=== PATIENT | male | born 1955 | race Caucasian/White ===

== ENCOUNTER → 2024-07-20 08:44 | Outpatient (REF) | payer MEDICARE, OTHER, SELFPAY | LOC: RAD 08:44 | PROVIDERS: ATTENDING PHYSICIAN Thoracic Surgery (Cardiothoracic Vascular Surgery); FAMILY PHYSICIAN Physician Assistant Medical | DX: I25.10 Atherosclerotic heart disease of native coronary artery without angina pectoris (principal); Z01.810 Encounter for preprocedural cardiovascular examination | CPT/HCPCS: 71250 ==

== ENCOUNTER → 2024-07-24 13:12 | Outpatient (REF) | payer MEDICARE, OTHER, SELFPAY | LOC: RAD 13:12 | PROVIDERS: ATTENDING PHYSICIAN Thoracic Surgery (Cardiothoracic Vascular Surgery); FAMILY PHYSICIAN Physician Assistant Medical | DX: I65.23 Occlusion and stenosis of bilateral carotid arteries (principal); Z01.810 Encounter for preprocedural cardiovascular examination | CPT/HCPCS: 70496; 70498; Q9967 ==

== ENCOUNTER 2024-08-15 06:09 | Inpatient (IN) | payer MEDICARE, OTHER, SELFPAY ==
[2024-07-18 08:28] VITALS: BMI 40.0
[2024-07-18 09:16] LABS: % Basophils 0.8 % (0-2); % Eosinophils 1.2 % (0-6); % Immature Granulocytes 0.6 % (0-0.5); % Neutrophils 69.4 % (42.2-75.2); Absolute Basophils 0.1 10^3/uL (0-0.2); Absolute Eosinophils 0.1 10^3/uL (0-0.7); Absolute Lymphocytes 1.2 10^3/uL (1.2-3.4); Absolute Monocytes 0.6 10^3/uL (0.1-0.6); Absolute Neutrophils 4.5 10^3/uL (1.4-6.5); Hematocrit 41.2 % (39.0-52.0); Hemoglobin 14.5 g/dL (13.0-18.0); Mean Corp Hgb Conc. 35.2 g/dL (33.0-37.0); Mean Corpuscular Volume 93.6 fL (80.0-94.0); Mean Platelet Volume 9.4 fL (7.4-10.4); Nucleated Red Blood Cells % 0 % (-); Platelet Count 178 10^3/uL (130-400); Red Cell Dist. Width 12.6 % (11.5-14.5); White Blood Cell Count 6.5 10^3/uL (4.8-10.8)
[2024-07-18 09:17] LABS: Urine Albumin 3+ (Neg - Trace); Urine Bilirubin Negative (Negative); Urine Character Clear (Clear); Urine Color Yellow; Urine Glucose Negative (Negative); Urine Ketone Negative (Negative); Urine Leukocyte Negative (Negative); Urine Nitrite Negative (Negative); Urine Occult Blood 4+ (Negative); Urine Urobilinogen Negative (Neg - 1+)
[2024-07-18 09:27] LABS: INR 1.04; PT 14.2 Sec (11.4-14.6)
[2024-07-18 09:28] LABS: APTT 37.4 Sec (23.4-35.0)
[2024-07-18 09:34] LABS: Urine Mucus Moderate
[2024-07-18 09:37] LABS: Urine Bacteria Few (Negative); Urine Red Blood Cell 70-80 /HPF (0-2)
[2024-07-18 09:59] LABS: ALT (SGPT) 32 U/L (0-50); AST (SGOT) 58 U/L (17-59); Albumin 4.3 g/dl (3.5-5.0); Alkaline Phosphatase 82 U/L (38-126); Blood Urea Nitrogen 9 mg/dl (9-20); Calcium 9.5 mg/dl (8.4-10.2); Carbon Dioxide 25 mmol/L (22-30); Chloride 100 mmol/L (98-107); Direct Bilirubin 0.3 mg/dl (0.0-0.4); Estimated Creatinine Clearance 118 ml/min; Glucose 118 mg/dl (70-99); Potassium 4.3 mmol/L (3.5-5.1); Sodium 135 mmol/L (135-145); Total Protein 7.1 g/dl (6.3-8.2); eGFR > 60.00
--- NOTE | 2024-07-18 09:59 | CM ---
Chart reviewed. Met with the patient and his life partner in [facility]. Patient currently with a cough and low grade fever. Dr Gilbert would like a follow up phone call with the patient on Monday to assess how he is feeling to help prevent prolong
intubation time. I notified Loida Hensley. Reviewed preoperative and postoperative instructions and restrictions, along with showering guidelines. Gave 2 soaps. Patient is agreeable to a home visit by CT Transitional RN. Patient is independent
of ADLS, lives with his life partner in a [address], 3 [facility], ambulates with a rollator. Plan is for the patient to return with CT Transitional RN.
[2024-07-18 10:26] LABS: Glycohemoglobin (HgbA1c) 5.3 % (4.0-5.6)
--- NOTE | 2024-08-07 12:53 | PTCARENOTE ---
Estela in Dr Dennis's office made aware of CXR report from 07/18/24.
--- NOTE | 2024-08-07 13:18 | PTCARENOTE ---
Ivelisse in Dr. Manning's office made aware of CXR report dated 07/18/24.
--- NOTE | 2024-08-07 13:59 | PTCARENOTE ---
patients 3/6 CXR abnormal- reviewed by Dr. Hidalgo- no additional interventions required
[2024-08-12 09:26] VITALS: BMI 40.7
[2024-08-12 09:49] LABS: % Basophils 0.8 % (0-2); % Eosinophils 5.6 % (0-6); % Immature Granulocytes 0.7 % (0-0.5); % Lymphocytes 25.1 % (20.5-51.1); % Monocytes 8.1 % (1.7-9.3); % Neutrophils 59.7 % (42.2-75.2); Absolute Basophils 0.1 10^3/uL (0-0.2); Absolute Eosinophils 0.5 10^3/uL (0-0.7); Absolute Immature Granulocytes 0.1 10^3/uL (0-0.05); Absolute Lymphocytes 2.1 10^3/uL (1.2-3.4); Absolute Monocytes 0.7 10^3/uL (0.1-0.6); Absolute Neutrophils 4.9 10^3/uL (1.4-6.5); Hematocrit 42.8 % (39.0-52.0); Hemoglobin 14.8 g/dL (13.0-18.0); Mean Corp Hgb Conc. 34.6 g/dL (33.0-37.0); Mean Corpuscular Volume 92.6 fL (80.0-94.0); Mean Platelet Volume 8.7 fL (7.4-10.4); Nucleated Red Blood Cells % 0 % (-); Platelet Count 219 10^3/uL (130-400); Red Blood Cell Count 4.62 10^6/uL (4.70-6.10); Red Cell Dist. Width 12.7 % (11.5-14.5); White Blood Cell Count 8.3 10^3/uL (4.8-10.8)
[2024-08-12 10:01] LABS: APTT 29.8 Sec (23.4-35.0); INR 0.96; PT 13.1 Sec (11.4-14.6)
[2024-08-12 10:38] LABS: Blood Urea Nitrogen 9 mg/dl (9-20); Calcium 9.5 mg/dl (8.4-10.2); Carbon Dioxide 29 mmol/L (22-30); Chloride 102 mmol/L (98-107); Estimated Creatinine Clearance 115 ml/min; Glucose 115 mg/dl (70-99); Potassium 4.6 mmol/L (3.5-5.1); Sodium 140 mmol/L (135-145); eGFR > 60.00
[2024-08-15] VITALS (8 sets, daily range): BP systolic 129–159; BP diastolic 72–90; BMI 40.5; BMI 39.6
--- NOTE | 2024-08-15 06:48 | W.SUR.PREOP ---
Pre-Operative Surgical Note
-
I have examined this patient prior to the performance of the scheduled procedure.
The patient's condition is unchanged from the time of the current History and
Physical and the patient is able to undergo the scheduled procedure.
[2024-08-15] MEDS: BACTROBAN NASAL 1 GRAM NASAL (07:12)
[2024-08-15] MEDS: PERIDEX 0.12% ORAL RINSE 15 ML PO (07:12)
[2024-08-15] MEDS: VANCOCIN 530 MG IV (07:15)
--- NOTE | 2024-08-15 09:02 | OR.RPT ---
Operative Report
Operative Report
PROCEDURE DATE: 08/15/2024
Preoperative diagnosis:
1. Critical bilateral carotid artery stenoses, right worse than left. Asymptomatic.
2. Critical coronary artery disease, preop for CABG.
Postoperative diagnosis: Same
Procedure: Right carotid endarterectomy with bovine pericardial patch angioplasty and intraoperative EEG/SSEP monitoring.
Surgeon: Nigel
Slp Teacher: VALERY Adame, required for all aspects of procedure including assistance with traction/countertraction, following of suture line, assistance with closure.
Complications: None
Anesthesia: General
Indications for procedure:
Severe bilateral right greater than left carotid stenosis. Also had evidence of vertebral basilar disease. Therefore concern for adequate perfusion for upcoming CABG procedure. In order to mitigate stroke risk, I felt that revascularizing 1 of
carotid would be of benefit. Especially given patent em[place]ak of [place]. Risk/benefits/alternatives of carotid endarterectomy all fully discussed. Patient understood all wished to proceed.
Description of procedure:
Patient was identified brought to the operating room placed on the table in supine position. After the adequate administration of anesthesia and perioperative antibiotics he was prepped and draped in the standard surgical fashion. A standard
preoperative timeout was undertaken and everybody was in agreement the plan. A standard longitudinal incision was made in the right neck that was carried through the skin subcutaneous tissue. Using the electrocautery dissection was carried through
the platysma muscle layer and then alongside the anterior medial border of the sternocleidomastoid muscle. The patient had a moderate amount of subcutaneous fatty tissue leading to the sternocleidomastoid muscle. Then using a combination of sharp
dissection with the Metzenbaum scissors and electrocautery I dissected along the anterior medial border of the internal jugular vein. There was not 1 large common facial vein branch but rather 2 smaller branches that were ligated between silk ties
and then divided. I then deepened my retraction. The common carotid artery was identified and carefully dissected away from the surrounding structures take great care to avoid any injury to the structures. A vessel loop was passed around it which
was double looped, but not yet tightened. Note the vagus nerve was visualized in its usual course posterior lateral to the common carotid artery, and was protected from harm's way. I then continued my dissection up the common carotid artery to the
bulb staying only on the anterior surface of the carotid artery. Then I carried the dissection up to the internal carotid artery and then to the distal internal carotid artery. I identified where it was soft and carefully circumferentially
dissected the internal carotid artery with minimal mobilization and passed a vessel loop around it. Note the hypoglossal nerve was preserved from harm's way. The patient was given an appropriate dose of heparin 11,000 units. Next I dissected the
anterior surface of the external carotid artery and superior thyroid branches. These were then carefully circumferentially dissected with minimal mobilization and vessel loops passed around these which were double looped but not yet tightened.
After 3 minutes of heparin circulation time and confirmation of optimization of the blood pressure with my anesthesiology colleagues, I clamped the distal internal carotid artery where it was soft. There was no immediate EEG or SSEP changes. After
1 minute of test clamp time there was no changes noted. Therefore at this point, the vessel loops on the external carotid artery and superior thyroid branches were tightened and the common carotid artery was clamped where it was soft proximally.
An arteriotomy was made on the common carotid artery with an 11 blade and extended using a Ibanez scissor. I extended the arteriotomy onto the mid to distal internal carotid artery. There was essentially occlusive plaque at the distal bulb leading
into the internal carotid artery such that a great difficulty even opening the channel of flow with a Ibanez scissor. But was able to finally do so staying external to the plaque and then back in the lumen just beyond the plaque. A Moriah was then
used to endarterectomized the plaque. An endarterectomy plane was created, and the plaque was then endarterectomized. Distally I feathered the plaque out to a nice clean endpoint in the distal internal carotid artery. Next I endarterectomized the
intima back to normal intima in the common carotid artery, and the intima was cut flush there. I then grasped the plaque and everted plaque out of the origin of the external carotid artery. The plaque was then sent off for specimen. The origin of
the external carotid artery was carefully visualized and any fine debris were removed with fine forceps. Proximal and distal endpoints were then carefully inspected. Any fine debris was removed with fine forceps, and the intima was noted to be
nicely adherent proximally and distally. Next any fine debris were removed throughout the endarterectomy bed with fine forceps. I then flushed heparinized saline. I was very satisfied. Then, I used a bovine pericardial patch to sew a patch
angioplasty with a running 5-0 Prolene suture. Prior to completing and tying down my suture line, I backbled sequentially each branch and reclamped each branch prior to unclamping the next branch. I then irrigated with heparinized saline. Then I
completed and tied down my suture line. We then restored flow in the common carotid and external carotid arteries. Finally, we released flow in the internal carotid artery. There was excellent pulsatile flow in all 3 vessels. There was an
excellent Doppler signal in the internal carotid artery distal to the patch with a good normal low resistance Doppler signal. There was a good Doppler signal in the external carotid artery as well. A couple of 6-0 Prolene [id number] sutures
were placed along any bleeding points along the suture line. Protamine was given to reverse the heparin. Hemostasis was completely achieved. We then irrigated and confirmed full hemostasis. We then closed in layers with 2-0 Vicryl layer to
reapproximate the sternocleidomastoid muscle, followed by 3-0 Vicryl platysma muscle running layer, followed by 4-0 Monocryl subcuticular stitch. Dermabond was applied. The patient tolerated procedure well. He awoke moving all extremities to
command with tongue in the midline.
--- NOTE | 2024-08-15 09:03 | W.SUR.POST ---
Surgical Immediate Post Op
Note
Pre Op Diagnosis: Carotid stenosis
Post Op Diagnosis: Same
Procedure Performed: Right carotid endarterectomy with bovine pericardial patch angioplasty and EEG monitoring
Primary Surgeon: Nigel
Assist: Deep FRANCO
Anesthesia: General
Estimated Blood Loss: 25 cc
Fluids: See anesthesia flowsheet
Drains/Shunts: None
Specimens/Cultures: Carotid plaque
Doppler/Duplex/Angio (Y/N): Y
Complications: None
Operative Findings: Woke from anesthesia moving all extremities
[2024-08-15 09:54] LABS: Blood Urea Nitrogen 7 mg/dl (9-20); Calcium 8.3 mg/dl (8.4-10.2); Carbon Dioxide 23 mmol/L (22-30); Chloride 109 mmol/L (98-107); Estimated Creatinine Clearance > 125 ml/min; Glucose 141 mg/dl (70-99); Potassium 3.8 mmol/L (3.5-5.1); Sodium 138 mmol/L (135-145); eGFR > 60.00
[2024-08-15 09:57] LABS: INR 1.18; PT 15.5 Sec (11.4-14.6)
[2024-08-15 09:58] LABS: APTT 33.5 Sec (23.4-35.0)
[2024-08-15 10:08] LABS: Hematocrit 35.7 % (39.0-52.0); Hemoglobin 12.6 g/dL (13.0-18.0); Mean Corp Hgb Conc. 35.3 g/dL (33.0-37.0); Mean Corpuscular Hgb 32.6 pg (27.0-31.0); Mean Corpuscular Volume 92.2 fL (80.0-94.0); Mean Platelet Volume 8.7 fL (7.4-10.4); Platelet Count 158 10^3/uL (130-400); Red Blood Cell Count 3.87 10^6/uL (4.70-6.10); Red Cell Dist. Width 13.1 % (11.5-14.5); White Blood Cell Count 10.6 10^3/uL (4.8-10.8)
[2024-08-15] MEDS: NSS 1000 IV ×2 (10:42→23:07)
--- NOTE | 2024-08-15 10:44 | CON.INTV ---
Consultation
Consultation Request
Date/Time Consultation Requested: 08/15
Date/Time Consultation Performed: 08/15
Reason for Consultation: Critical care
Medical History
-
History of Present Illness:
History obtained from the patient but also reviewing inpatient and outpatient records. Patient is a 69-year-old male with history of hypertension, hypercholesterolemia, history of TIA, coronary disease who was found to have bilateral carotid
disease, right greater than left. In anticipation of possible bypass surgery, patient underwent right carotid endarterectomy 08/15. Presently he is without complaints. Systolic blood pressure 180s to 190s. Patient denies any headaches, shortness
of breath, chest pain.. We are asked to help from a critical care standpoint
.
PMH: Hypertension, hyperlipidemia, coronary disease, history of hemorrhagic shock from retroperitoneal bleed on anticoagulation in the past, chronic atrial fibrillation, right bundle branch block, history of pulm embolism, gout, asthma, history of
sleep apnea not on CPAP, history of anemia. History of TIA with difficulty walking at 2002. History of complete disease. Patient not a great historian as he denied history of blood clot, denied history of sleep apnea. He also has a history of
renal stent, cataract surgery, vertebral artery angioplasty at [place]. History of COVID
Past Medical History
Past Medical History: None (See above)
Past Surgical History: None (See above)
Social History
Tobacco: Former Smoker ([id number] history of smoking quit 2002)
Alcohol: Daily (3 tequila cocktails a day)
Drug: None
Personal: Partner
Living: With Roomate
Employment: Retired (Loader Operator)
Family History
Family History: Other (No children. 1 brother with early onset Alzheimer's . Family history of coronary disease in father at 85, mother at 75)
Allergies / Home Medications
Allergies
Allergy/AdvReac Type Severity Reaction Status Date / Time
amoxicillin Allergy Swelling Verified 08/15/24 06:20
ampicillin Allergy Swelling Verified 08/15/24 06:20
cephalexin [From Keflex] Allergy Swelling Verified 08/15/24 06:20
Cephalosporins Allergy Unknown Verified 08/15/24 06:20
penicillin V Allergy PER PT Verified 08/15/24 06:20
ABLE TO
TOLERATE
PENICILLIINS
Penicillins Allergy PER PT Verified 08/15/24 06:20
ABLE TO
TOLERATE
PENICILLINS
Home Medications
�Medication �Instructions �Recorded �Confirmed �Last Taken �Type
allopurinol 100 mg tablet 100 mg PO DAILY 07/12/24 08/15/24 08/15/24 04:30 History
amlodipine 5 mg tablet 5 mg PO HS 07/12/24 08/15/24 08/14/24 19:00 History
aspirin 81 mg tablet,delayed 81 mg PO DAILY 07/12/24 08/15/24 08/15/24 04:30 History
release
carvedilol 12.5 mg tablet 12.5 mg PO BID 07/12/24 08/15/24 08/15/24 04:30 History
folic acid 1 mg tablet 1 mg PO DAILY 07/12/24 08/15/24 08/15/24 04:30 History
potassium chloride 20 mEq 20 meq PO DAILY 07/12/24 08/15/24 08/15/24 04:30 History
tablet,extended release
thiamine mononitrate (vit B1) 100 100 mg PO DAILY 07/12/24 08/15/24 08/15/24 04:30 History
mg tablet
Lactobacillus acidophilus 10 10,000 mmu cells PO DAILY 08/07/24 08/15/24 08/14/24 10:00 History
billion cell capsule (Probiotic)
ferrous sulfate 325 mg (65 mg 325 mg PO DAILY 08/07/24 08/15/24 08/15/24 04:30 History
iron) tablet (iron)
simvastatin 20 mg tablet 20 mg PO DAILY 08/07/24 08/15/24 08/15/24 04:30 History
turmeric 400 mg capsule 400 mg PO DAILY 08/07/24 08/15/24 08/14/24 10:00 History
ramelteon 8 mg tablet 8 mg PO HS 08/15/24 08/15/24 08/14/24 19:00 History
Review of Systems
-
All other systems: Negative unless noted
Vitals / Labs / Diagnostic Testing
Vital Signs
Temp Pulse Resp BP Pulse Ox
97.3 F 61 17 147/85 98
08/15/24 10:09 08/15/24 10:00 08/15/24 10:00 08/15/24 10:00 08/15/24 10:09
Lab Data
08/15/24 09:33
08/15/24 09:33
Laboratory Results
08/15/24
09:33
PT 15.5 H
INR 1.18
APTT 33.5
Diagnostic Testing:
Physical Exam
-
HEENT: Normocephalic, Anicteric, Other (Right carotid incision intact) and Other (Pupils equal and reactive)
Cardiovascular: S1/S2, Regular Rhythm, Murmur (n), Rub (n), Peripheral Edema (tr) and Calf Tenderness (n)
Respiratory: Wheeze (n), Rales (n), Rhonchi (n) and Non-Labored Respirations
GI: Soft, Non Distended (Obese) and Non Tender
Neurology: Awake, Alert, Oriented and No Motor Deficits (Cranial nerves intact, moves all extremities)
Skin: Good Color and Other (Left upper extremity A-line)
General: Comfortable
Assessment
-
69-year-old male with complex medical history including known coronary disease based on catheterization 07/03/2024, bilateral carotid disease, now status post right carotid endarterectomy in anticipation of bypass surgery
S/p RCEA 4/3
Hypertension
SBP 190
Coronary disease with multivessel disease per catheterization 07/03/2024 ([facility])
Awaiting bypass surgery
Conditions present prior to admission
Moderate to severe obstructive lung disease, FEV1 2.06/61%
Spirometry 07/18/2024
History of stroke/TIA 2002
Vertebral artery angioplasty at [place]
History of subarachnoid hemorrhage
Difficulty walking, uses a cane
Hypertension/hyperlipidemia
History of right bundle branch block/LAFB
Diabetes
History of pulmonary embolism, patient cannot recall
History of asthma
Sleep apnea per records, not on CPAP
History of hemorrhagic shock with retroperitoneal bleed in the past
While on anticoagulation
Chronic atrial fibrillation
04-[id number] history of smoking quit 2002
Daily alcohol use, 3 tequila cocktails a day
Plan/recommendations
Presently, patient is comfortable without complaints. Current systolic pressure in the 190
Cardene drip was started, systolic pressure 168
Will titrate per parameters maintain SBP between 140 and 160
Patient without complaints, denies headaches
Unfortunately, patient is not a very good historian
Cannot recall history of pulm embolism
Initially could not recall history of stent placement of vertebral artery but then recalls after discussion
Cannot recall any history of bleeding in the brain per records, subarachnoid hemorrhage
Cannot recall any history of atrial fibrillation
Patient does recall bleed in the abdomen in 2023 while at [facility] while on anticoagulation and Lovenox
Moving forward
Continue with management per vascular surgery
Close monitoring of blood pressure, A-line in place.
Cardene to maintain blood pressure within parameters per vascular protocol
Apparently patient required Sung-Synephrine intraoperatively per nursing
Appears to be in sinus rhythm based on telemetry
Await EKG, chest x-ray
Continue IV fluids
Following neurovascular exam, vascular checks. Neurological exam nonfocal at this time
Aspirin therapy per vascular protocol
Subcutaneous heparin for DVT prophylaxis
Discussed with patient importance of alcohol moderation/cessation given multiple comorbidities. 'Why would I do that'
This will be an ongoing discussion
Reviewed with critical care nursing
TCCT 31 min
[2024-08-15] MEDS: CARDENE 200 IV ×2 (10:47→18:12)
[2024-08-15 10:50] LABS: Glucose - Point of Care 122 mg/dl (70-99)
--- NOTE | 2024-08-15 11:00 | PTCARENOTE ---
Received pt into ICU rm [id number] from PACU s/p R CEA. Neuro checks completed w off going RN- see flow sheet. Pt. oriented x3; c/o mild pain @ incisional site, denies pain meds. PERRLA 3mm/brisk. ZHENG/gen weakness. Facial symmetry intact SR w 1st
degree AVB w BBB and PAC's on monitor. SpO2 98% on 2LNC. +BS, abd soft/round/obese. Tolerating clear liquids, no n/v. Cont b/b. Elevated SBP's into 180's. Cardene gtt initiated per orders to keep SBP w/in goal range- see flow sheet. #20 R FA w
NSS @ 80ml/hr and Cardene gtt infusing. #18 R AC patent, dressing c/d/i. L rad A-line transduced, calibrated, and monitored; all ports patent and secured. Pt. instructed on how to report care concerns and call alcantara in reach.
[2024-08-15] MEDS: TYLENOL 650 MG PO ×2 (13:26→19:39)
[2024-08-15] MEDS: HEPARIN 5000 UNITS SC ×2 (16:27→23:06)
--- NOTE | 2024-08-15 16:48 | PTCARENOTE ---
Pt. reassessed; no changes since initial assessment. Q1h neuro checks maintained; remains w in normal limits- see flow sheet. Pt. tolerating meals. Bedrest maintained. Remains on cardene gtt to keep SBP w in goal range- see flow sheet. Call alcantara
w in reach.
[2024-08-15] MEDS: COREG 12.5 MG PO (19:39)
--- NOTE | 2024-08-15 20:00 | PTCARENOTE ---
Received pt resting in bed, AAOx3, in good spirits. C/O / R neck pain - tylenol given. Neuro checks ongoing Q1h. All WNL. SR with 1st deg, HR 70s. On cardene to maintain SBP 100-165 - see titrations. L david zeroed and transducing. +1 LE edema. +
pulses. AFebrile. On 2L NC. Spo2 97%. Lungs CTA. Round abd. + bowel sounds. Tolerating low cholesterol diet. Voiding in urinal without difficulty. R neck incision approximated, surgi glue intact. Mild ecchymosis and edema present - ice pack applied.
Cardene gtt and NSS @ 80ml/hr infusing. Call alcantara in reach
[2024-08-15] MEDS: NORVASC 5 MG PO (21:12)
[2024-08-16] VITALS (13 sets, daily range): BP systolic 124–177; BP diastolic 71–100; BMI 40.1
--- NOTE | 2024-08-16 | PTCARENOTE ---
No changes in assessment. Remains on cardene gtt.
[2024-08-16] MEDS: CARDENE 200 IV (02:15)
[2024-08-16] MEDS: TYLENOL 650 MG PO (03:09)
[2024-08-16 03:43] LABS: Hematocrit 35.8 % (39.0-52.0); Hemoglobin 12.7 g/dL (13.0-18.0); Mean Corp Hgb Conc. 35.5 g/dL (33.0-37.0); Mean Corpuscular Hgb 33.2 pg (27.0-31.0); Mean Corpuscular Volume 93.7 fL (80.0-94.0); Mean Platelet Volume 9.5 fL (7.4-10.4); Platelet Count 181 10^3/uL (130-400); Red Blood Cell Count 3.82 10^6/uL (4.70-6.10); Red Cell Dist. Width 12.9 % (11.5-14.5); White Blood Cell Count 12.1 10^3/uL (4.8-10.8)
[2024-08-16 03:51] LABS: INR 1.14; PT 15.1 Sec (11.4-14.6)
[2024-08-16 03:52] LABS: APTT 31.4 Sec (23.4-35.0)
[2024-08-16 04:06] LABS: Blood Urea Nitrogen 7 mg/dl (9-20); Calcium 8.6 mg/dl (8.4-10.2); Carbon Dioxide 24 mmol/L (22-30); Chloride 106 mmol/L (98-107); Estimated Creatinine Clearance > 125 ml/min; Glucose 151 mg/dl (70-99); Potassium 3.9 mmol/L (3.5-5.1); Sodium 139 mmol/L (135-145); eGFR > 60.00
[2024-08-16 05:01] LABS: Hepatitis C Antibody Negative (Negative)
[2024-08-16] MEDS: KCL 20 MEQ PO (07:31)
[2024-08-16] MEDS: VISBIOME 1 CAP PO (07:31)
[2024-08-16] MEDS: COREG 12.5 MG PO ×2 (07:31→16:54)
[2024-08-16] MEDS: LIPITOR 10 MG PO (07:31)
[2024-08-16] MEDS: FOLVITE 1 MG PO (07:31)
[2024-08-16] MEDS: ZYLOPRIM 100 MG PO (07:31)
[2024-08-16] MEDS: ASPIR LOW (ENTERIC COATED) 81 MG PO (07:31)
[2024-08-16] MEDS: HEPARIN 5000 UNITS SC ×2 (07:32→16:54)
--- NOTE | 2024-08-16 07:52 | W.PN.INTV ---
Today's Communication / Plan
Recommendations
Wean off Cardene therapy per vascular protocol
Currently on aspirin
DVT prophylaxis with subcutaneous heparin
Patient drinks 3 tequila a day, continue thiamine/folic acid
We will follow postsurgery in the next week.
Assessment
-
69-year-old male with complex medical history including known coronary disease based on catheterization 07/03/2024, bilateral carotid disease, now status post right carotid endarterectomy in anticipation of bypass surgery
S/p RCEA 08/15
Hypertension
SBP 190
Coronary disease with multivessel disease per catheterization 07/03/2024 ([facility])
Awaiting bypass surgery
Conditions present prior to admission
Moderate to severe obstructive lung disease, FEV1 2.06/61%
Spirometry 07/18/2024
History of stroke/TIA 2002
Vertebral artery angioplasty at [place]
History of subarachnoid hemorrhage
Difficulty walking, uses a cane
Hypertension/hyperlipidemia
History of right bundle branch block/LAFB
Diabetes
History of pulmonary embolism, patient cannot recall
History of asthma
Sleep apnea per records, not on CPAP
History of hemorrhagic shock with retroperitoneal bleed in the past
While on anticoagulation
Chronic atrial fibrillation
37-[id number]-lisg history of smoking quit 2002
Daily alcohol use, 3 tequila cocktails a day
Plan/recommendations
Presently, patient is comfortable without complaints.
Cardene drip continues, will continue to wean off
Patient without complaints, denies headaches
Unfortunately, patient is not a very good historian
Cannot recall history of pulm embolism
Initially could not recall history of stent placement of vertebral artery but then recalls after discussion
Cannot recall any history of bleeding in the brain per records, subarachnoid hemorrhage
Cannot recall any history of atrial fibrillation
Patient does recall bleed in the abdomen in 2023 while at [facility] while on anticoagulation and Lovenox
Moving forward
Continue with management per vascular surgery
Close monitoring of blood pressure, wean Cardene off
Apparently patient required Sung-Synephrine intraoperatively per nursing
Appears to be in sinus rhythm based on telemetry
CXR not obtained. Will obtain today
In anticipation of bypass surgery in the next week
EKG/3 normal sinus rhythm with right bundle branch block.
Tolerating p.o., discontinue IV fluids
Following neurovascular exam, vascular checks. Neurological exam nonfocal at this time
Aspirin therapy per vascular protocol
Subcutaneous heparin for DVT prophylaxis
Discussed with patient importance of alcohol moderation/cessation given multiple comorbidities. 'Why would I do that'
This will be an ongoing discussion
Eventual bypass surgery
Reviewed with critical care nursing
TCCT 31 min
Subjective Dataa
Subjective Data
Date of Service:
Date of Service: August 16, 2024
Subjective:
Patient is without complaints. Eating breakfast. Denies shortness of breath, chest pain, nausea, abdominal pain. Denies any neck pain. Appears to be in good spirits
Objective Data
Data Reviewed
Vital Signs / I&O / Oxygen:
Vital Signs
Temp Pulse Resp BP Pulse Ox
98.1 F 70 19 168/75 98
08/16/24 03:19 08/16/24 07:30 08/16/24 07:30 08/16/24 07:31 08/16/24 07:30
Intake and Output
08/15/24 08/16/24 08/17/24
06:59 06:59 06:59
Intake Total 2422.5 / 2502.5 80 / 80
Output Total 1450 / 2150 700 / 700
Balance 972.5 / 352.5 -620 / -620
SaO2 98
Nasal Cannula flow liters per 2
minute
Physical Exam
General: Comfortable, Other (Neck incision intact) and Other (Carotid incision intact)
HEENT: Normocephalic, Anicteric and Other (Large neck)
Cardiovascular: S1-S2, Regular Rhythm, Murmur (n), Rub (n) and Peripheral Edema (tr)
Respiratory: Wheeze (n), Crackles (n) and Rhonchi (n)
GI: Soft, Non Distended (Morbidly obese) and Non Tender
Neurology: Awake, Alert, Oriented and No Motor Deficits (Cranial nerves intact, moves all extremities)
Skin: Cyanosis (n) and Rash (n)
Labs/Micro/Reports
Lab Data
08/16/24 03:15
08/16/24 03:15
Laboratory Results
08/15/24 08/16/24
09:33 03:15
PT 15.5 H 15.1 H
INR 1.18 1.14
APTT 33.5 31.4
--- NOTE | 2024-08-16 08:22 | W.PN.VS ---
Addendum entered and electronically signed by Miguel Manning MD 08/16/24 16:16:
Seen and examined earlier this a.m. with VALERY Lainez. This is a late entry. Agree with findings as noted below. Patient was without complaints. Right neck incision clean dry and intact, no hematoma. Neurologically no focal deficits, moves all
extremities well. Tongue midline. Plan/as discussed and noted below.
Original Note:
Today's Communication / Plan
-
Seen and assessed with Dr. Manning
Assessment/Plan
-
POD 1 right CEA
Plan:
- DC A-line
- DC IV fluids
- Wean off Cardene
- P.o. meds
- Regular diet
- OOB/ambulate
- Transfer to CVICU when bed available for CT surgery Monday
Subjective Data
-
Date of Service: August 16, 2024
Patient seen at bedside, Dr. Manning. Patient offers no complaints at this time. No events overnight. On Cardene drip at this time.
Objective Data
-
Vital Signs
Temp Pulse Resp BP Pulse Ox
98.1 F 70 19 168/75 98
08/16/24 03:19 08/16/24 07:30 08/16/24 07:30 08/16/24 07:31 08/16/24 07:30
Intake and Output
08/15/24 08/16/24 08/17/24
06:59 06:59 06:59
Intake Total 2422.5 / 2502.5 160 / 160
Output Total 1450 / 2150 1000 / 1000
Balance 972.5 / 352.5 -840 / -840
Intake:
Oral fluids 360 / 360
IV fluids (Total) 2062.5 / 2142.5 160 / 160
Cardene 387.5 / 387.5
Nss 1,000 ml @ 80 mls/hr IV . 1600 / 1680 160 / 160
[id number] JOAN Rx#:[id number]
norm saline 75 / 75
Output:
Urine, Voided 1450 / 2150 1000 / 1000
Lab Results
08/16/24 03:15
08/16/24 03:15
Calcium 8.6 mg/dl (8.4-10.2) 08/16/24 03:15
Total Bilirubin 1.0 mg/dl (0.2-1.3) 07/18/24 08:38
Direct Bilirubin 0.3 mg/dl (0.0-0.4) 07/18/24 08:38
AST 58 U/L (17-59) 07/18/24 08:38
ALT 32 U/L (0-50) 07/18/24 08:38
Alkaline Phosphatase 82 U/L (38-126) 07/18/24 08:38
Total Protein 7.1 g/dl (6.3-8.2) 07/18/24 08:38
Albumin 4.3 g/dl (3.5-5.0) 07/18/24 08:38
Physical Exam
-
AAO x 3
No tachypnea on room air
No tachycardia
Neck site clean, dry, intact, soft, flat
Abdomen soft
Follows commands
Moves all extremities
--- NOTE | 2024-08-16 09:29 | PTCARENOTE ---
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 BP in the 170's this AM, cardene restarted. Vascular team rounded this AM, maintain SBP below 175, NIBP currently sitting at 130/70's. Cardene gtt off. DC A line and ambulate orders placed. Neuro checks intact. Pt is
having minimal pain from surgical site.
[2024-08-16] MEDS: FEOSOL 325 MG PO (09:55)
[2024-08-16] MEDS: VITAMIN B1 100 MG PO (09:55)
--- NOTE | 2024-08-16 10:28 | PTCARENOTE ---
A Line removed. Pt walked to the bathroom without difficulty, now OOB to chair. Pt uses his own rollator to ambulate.
--- NOTE | 2024-08-16 11:42 | CM ---
CM following re: discharge planning.
Reviewed pt's chart, met with pt.
Pt is a POD 1 right CEA and per Vascular Surgery pt will be transferred to IVU for CT surgery Monday.
Per CM note, patient is independent of ADL and IADL, lives with his life partner in a 1 STH, 3 LEON, ambulates with a rollator.
D/C plan: home with CT Transitional RN and partner support.
CM will follow with discharge plan updates as hospitalization progreseses
--- NOTE | 2024-08-16 14:24 | W.PN.UPDATE ---
Update Note
Progress Note Update
Transitioning care to CT surgery for planned procedure Monday.
Vascular surgery follow up added to chart
Please call with questions/concerns.
[2024-08-16] MEDS: NORVASC 5 MG PO (16:54)
[2024-08-17] VITALS (11 sets, daily range): BP systolic 145–169; BP diastolic 66–99; BMI 38.6; BMI 38.3
[2024-08-17] MEDS: HEPARIN 5000 UNITS SC ×4 (00:49→23:00)
[2024-08-17 04:58] LABS: Hematocrit 40.4 % (39.0-52.0); Hemoglobin 14.4 g/dL (13.0-18.0); Mean Corp Hgb Conc. 35.6 g/dL (33.0-37.0); Mean Corpuscular Volume 92.4 fL (80.0-94.0); Mean Platelet Volume 9.2 fL (7.4-10.4); Platelet Count 203 10^3/uL (130-400); Red Blood Cell Count 4.37 10^6/uL (4.70-6.10); Red Cell Dist. Width 13.1 % (11.5-14.5); White Blood Cell Count 10.1 10^3/uL (4.8-10.8)
[2024-08-17 05:27] LABS: Blood Urea Nitrogen 9 mg/dl (9-20); Calcium 9.6 mg/dl (8.4-10.2); Carbon Dioxide 28 mmol/L (22-30); Chloride 103 mmol/L (98-107); Estimated Creatinine Clearance > 125 ml/min; Glucose 113 mg/dl (70-99); Magnesium 1.8 mg/dl (1.6-2.3); Phosphorus 2.9 mg/dl (2.5-4.5); Potassium 3.9 mmol/L (3.5-5.1); Sodium 141 mmol/L (135-145); eGFR > 60.00
--- NOTE | 2024-08-17 07:51 | W.PN.CT ---
Today's Communication / Plan
-
-s/p R CEA on 08/15.
-may need some diuresis. Pt states that he takes diuretic at home once a day, but doesn't remember the dose
-will start 40 iv Lasix. check pBNP
-last BM 08/14- Miralax, Senna
-plans for CABG on Saturday 08/[address] Lind
Assessment / Plan
-
-69-year-old male with complex medical history including known coronary disease based on catheterization 07/03/2024, bilateral carotid disease, now status post right carotid endarterectomy in anticipation of bypass surgery
-S/p RCEA 08/15/24
-Hypertension (SBP 190)
-Coronary disease with multivessel disease per catheterization 07/03/2024 ([facility])
Conditions present prior to admission
-Moderate to severe obstructive lung disease, FEV1 2.06/61%
-Spirometry 07/18/2024
-History of stroke/TIA 2002
-Vertebral artery angioplasty at [place]
-History of subarachnoid hemorrhage
-Difficulty walking, uses a cane
-Hypertension/hyperlipidemia
-Class 2 obesity
-History of right bundle branch block/LAFB
-HgA1c 5.3 on 07/18/24
-History of pulmonary embolism, patient cannot recall
-History of asthma
-Sleep apnea per records, not on CPAP
-History of hemorrhagic shock with retroperitoneal bleed in the past while on anticoagulation
-Chronic atrial fibrillation
-32-[id number] history of smoking quit 2002
-Daily alcohol use, 3 tequila cocktails a day
Discussed patient care with: Nursing and Care Team
Subjective
-
Date of Service: August 17, 2024
Objective Data
-
Lab Results
08/17/24 04:44
08/17/24 04:44
PT 15.1 Sec (11.4-14.6) H 08/16/24 03:15
INR 1.14 08/16/24 03:15
APTT 31.4 Sec (23.4-35.0) 08/16/24 03:15
Vital Signs
Vital Signs
Temp Pulse Resp BP Pulse Ox
97.7 F 61 14 152/66 96
08/17/24 03:06 08/17/24 06:00 08/17/24 06:00 08/17/24 06:00 08/16/24 10:26
CT Intake/Output/Weight
08/16/24 08/17/24 08/17/24
18:59 06:59 18:59
Intake Total 800 / 1760 960 / 1760
Output Total 1200 / 1200
Balance -400 / 560 960 / 560
SaO2: 96
Physical Exam
-
General: Awake and AOx3
Cardiovascular: Regular rate & rhythm, No Murmurs and No Rub
Respiratory: Decreased Breath Sounds
Incision: Other (R carotid incision is cdi, no hematoma)
Extremities: Edema +2
Abdomen: soft, nontender, nondistended, + bowel sounds
Data Reviewed
-
Lab Results: Results Reviewed
Medications: Active Meds Reviewed
Chest X-Ray: Report Reviewed and Image Reviewed
ECG: Report Reviewed and Image Reviewed
--- NOTE | 2024-08-17 08:02 | PTCARENOTE ---
0700 assumed care. Patient laying in bed. AAO x3 SR 71 BP via RT upper arm stable on RA denies pain . RT neck incision intact
[2024-08-17] MEDS: KCL 20 MEQ PO (08:05)
[2024-08-17] MEDS: FOLVITE 1 MG PO (08:06)
[2024-08-17] MEDS: COREG 12.5 MG PO ×2 (08:06→20:23)
[2024-08-17] MEDS: VISBIOME 1 CAP PO (08:06)
[2024-08-17] MEDS: LIPITOR 10 MG PO (08:06)
[2024-08-17] MEDS: ZYLOPRIM 100 MG PO (08:06)
[2024-08-17] MEDS: VITAMIN B1 100 MG PO (08:06)
[2024-08-17] MEDS: FEOSOL 325 MG PO (08:06)
[2024-08-17] MEDS: SENOKOT-S 1 TABLET PO ×2 (08:16→20:23)
[2024-08-17] MEDS: LASIX 40 MG IV (08:16)
[2024-08-17] MEDS: ASPIR LOW (ENTERIC COATED) 81 MG PO (10:29)
--- NOTE | 2024-08-17 18:00 | PTCARENOTE ---
Received pt from ICU into 2261 pre op CVOR. VSS, sinus rhythm on tele. Pt oriented to room, call alcantara system and safety precautions. Questions encouraged.
--- NOTE | 2024-08-17 19:22 | PTCARENOTE ---
Earlier today patent transfer to CVICU . Report given prior to transfer All personal belongings packed by patient
[2024-08-17] MEDS: MIRALAX 17 GRAMS PO (20:23)
--- NOTE | 2024-08-17 20:30 | PTCARENOTE ---
Patient received resting in room watching movie. Patient A+A+Ox3. No neurological deficits noted. Patient ambulating in room and to bathroom without difficulty. No c/o headache, dizziness or lightheadedness. No c/o SOB. Room air. SpO2 98%.
Sinus Rhythm. BBC. Heart rate 60-70's. Patient with no c/o chest pain, pressure or discomfort. Normoactive bowel sounds. No BM. Miralax given per patient request. No c/o nausea. No vomiting. Voiding without difficulty. Bilateral lower
extremity edema. Positive, palpable pulses. Right neck incision - Surgical adhesive - Ecchymosis. Patient with no difficulty with head movements. Speech clear. No difficulty swallowing. Assessment as documented.
[2024-08-17] MEDS: NORVASC 10 MG PO (22:50)
[2024-08-18] VITALS (12 sets, daily range): BP systolic 119–178; BP diastolic 76–98; BMI 38.4
--- NOTE | 2024-08-18 00:32 | W.PN.CT ---
Today's Communication / Plan
-
-plans for CABG on Saturday 08/[address] Lind
-s/p R CEA on 08/15
-Continue diuresis with lasix 40 mg IV daily
-continue asa, coreg, iron, thiamine, atorvastatin, norvasc
Assessment / Plan
-
-69-year-old male with complex medical history including known coronary disease based on catheterization 07/03/2024, bilateral carotid disease, now status post right carotid endarterectomy in anticipation of bypass surgery
-S/p RCEA 08/15/24
-Hypertension (SBP 190)
-Coronary disease with multivessel disease per catheterization 07/03/2024 ([facility])
Conditions present prior to admission
-Moderate to severe obstructive lung disease, FEV1 2.06/61%
-Spirometry 07/18/2024
-History of stroke/TIA 2002
-Vertebral artery angioplasty at [place]
-History of subarachnoid hemorrhage
-Difficulty walking, uses a cane
-Hypertension/hyperlipidemia
-Class 2 obesity
-History of right bundle branch block/LAFB
-HgA1c 5.3 on 07/18/24
-History of pulmonary embolism, patient cannot recall
-History of asthma
-Sleep apnea per records, not on CPAP
-History of hemorrhagic shock with retroperitoneal bleed in the past while on anticoagulation
-Chronic atrial fibrillation
-[id number]-[id number] history of smoking quit 2002
-Daily alcohol use, 3 tequila cocktails a day
Subjective
-
Date of Service: August 18, 2024
Objective Data
-
PT 15.1 Sec (11.4-14.6) H 08/16/24 03:15
INR 1.14 08/16/24 03:15
APTT 31.4 Sec (23.4-35.0) 08/16/24 03:15
Vital Signs
Vital Signs
Temp Pulse Resp BP Pulse Ox
98.6 F 69 16 165/76 99
08/17/24 22:45 08/17/24 22:50 08/17/24 22:45 08/17/24 22:50 08/17/24 22:[address]
CT Intake/Output/Weight
08/17/24 08/17/24 08/18/24
06:59 18:59 06:59
Intake Total 960 / 1760 340 / 580 240 / 580
Output Total 300 / 300
Balance 960 / 560 40 / 280 240 / 280
SaO2: 99
Physical Exam
-
General: Awake, Oriented and AOx3
Cardiovascular: Regular rate & rhythm
Respiratory: Clear
Extremities: Edema +2
Data Reviewed
-
Lab Results: Results Reviewed
Medications: Active Meds Reviewed
Chest X-Ray: Report Reviewed
ECG: Report Reviewed
--- NOTE | 2024-08-18 01:00 | PTCARENOTE ---
Patient sleeping without difficulty. No further changes from previous assessment.
--- NOTE | 2024-08-18 05:00 | PTCARENOTE ---
Patient A+A+Ox3. No neurological deficits noted. AM lab work collected and sent. Standing scale weight 111.2 kg. Patient back to sleep. Assessment/Interventions as documented.
[2024-08-18 05:07] LABS: Hematocrit 37.7 % (39.0-52.0); Hemoglobin 13.5 g/dL (13.0-18.0); Mean Corp Hgb Conc. 35.8 g/dL (33.0-37.0); Mean Corpuscular Hgb 33.1 pg (27.0-31.0); Mean Corpuscular Volume 92.4 fL (80.0-94.0); Mean Platelet Volume 9.1 fL (7.4-10.4); Platelet Count 188 10^3/uL (130-400); Red Blood Cell Count 4.08 10^6/uL (4.70-6.10); Red Cell Dist. Width 12.9 % (11.5-14.5); White Blood Cell Count 8.4 10^3/uL (4.8-10.8)
[2024-08-18 05:29] LABS: NT-proBNP 343 pg/ml
[2024-08-18 05:39] LABS: Blood Urea Nitrogen 16 mg/dl (9-20); Calcium 9.3 mg/dl (8.4-10.2); Carbon Dioxide 28 mmol/L (22-30); Chloride 103 mmol/L (98-107); Estimated Creatinine Clearance > 125 ml/min; Glucose 106 mg/dl (70-99); Magnesium 1.8 mg/dl (1.6-2.3); Potassium 3.8 mmol/L (3.5-5.1); Sodium 137 mmol/L (135-145); eGFR > 60.00
[2024-08-18] MEDS: COREG 12.5 MG PO ×2 (09:07→20:32)
[2024-08-18] MEDS: FEOSOL 325 MG PO (09:08)
[2024-08-18] MEDS: FOLVITE 1 MG PO (09:08)
[2024-08-18] MEDS: SENOKOT-S 1 TABLET PO (09:08)
[2024-08-18] MEDS: KCL 20 MEQ PO (09:08)
[2024-08-18] MEDS: ASPIR LOW (ENTERIC COATED) 81 MG PO (09:08)
[2024-08-18] MEDS: ZYLOPRIM 100 MG PO (09:08)
[2024-08-18] MEDS: VISBIOME 1 CAP PO (09:08)
[2024-08-18] MEDS: VITAMIN B1 100 MG PO (09:08)
[2024-08-18] MEDS: MIRALAX 17 GRAMS PO (09:08)
[2024-08-18] MEDS: LIPITOR 80 MG PO (09:08)
[2024-08-18] MEDS: LASIX 40 MG IV (09:09)
[2024-08-18] MEDS: HEPARIN 5000 UNITS SC ×3 (09:09→23:23)
--- NOTE | 2024-08-18 09:37 | PTCARENOTE ---
assumed care of pt from previous shift RN, sinus rhythm on tele, VSS, + peripheral pulses, +2 edema to bilateral lower extremities. Lungs diminished, coughing and deep breathing encouraged.
[2024-08-18] MEDS: SENOKOT-S PO (20:28)
--- NOTE | 2024-08-18 21:00 | PTCARENOTE ---
Patient received resting in bed watching television. Patient A+A+Ox3. No neurological deficits noted. Patient clipped and prepped per protocol for CVOR. Patient took 4% Chlorhexidine shower. Linens changed. Room air. SpO2 100%. Sinus Rhythm.
First degree AV block. BBC. Heart rate 60-70's. Patient with no c/o chest pain, pressure or discomfort. Normoactive bowel sounds. Positive BM. Voiding without difficulty. Right neck incision - Surgical adhesive - Intact - Open to air.
Bilateral lower extremity edema. Positive, palpable pulses. Patient with no c/o back or flank pain. Resting back in bed watching television. Assessment as documented.
[2024-08-18] MEDS: NORVASC 10 MG PO (22:14)
[2024-08-19] VITALS (17 sets, daily range): BP systolic 99–171; BP diastolic 48–98; BMI 38.1
--- NOTE | 2024-08-19 00:30 | PTCARENOTE ---
Patient NPO after midnight. Patient sleeping without difficulty. No further changes from previous assessment.
[2024-08-19 05:00] LABS: Hematocrit 39.3 % (39.0-52.0); Mean Corp Hgb Conc. 35.6 g/dL (33.0-37.0); Mean Corpuscular Hgb 32.8 pg (27.0-31.0); Mean Platelet Volume 9.1 fL (7.4-10.4); Platelet Count 192 10^3/uL (130-400); Red Blood Cell Count 4.27 10^6/uL (4.70-6.10); Red Cell Dist. Width 13.2 % (11.5-14.5); White Blood Cell Count 9.3 10^3/uL (4.8-10.8)
[2024-08-19 05:23] LABS: Blood Urea Nitrogen 17 mg/dl (9-20); Calcium 9.6 mg/dl (8.4-10.2); Carbon Dioxide 29 mmol/L (22-30); Chloride 102 mmol/L (98-107); Estimated Creatinine Clearance > 125 ml/min; Glucose 114 mg/dl (70-99); Magnesium 1.8 mg/dl (1.6-2.3); Potassium 3.8 mmol/L (3.5-5.1); Sodium 138 mmol/L (135-145); eGFR > 60.00
[2024-08-19] MEDS: BACTROBAN 2% OINTMENT 1 APPLIC NASAL ×2 (05:57→19:05)
[2024-08-19] MEDS: LOPRESSOR 25 MG PO (05:57)
[2024-08-19] MEDS: PROTONIX 40 MG PO (05:57)
[2024-08-19] MEDS: MAGNESIUM OXIDE 500 MG PO (05:57)
--- NOTE | 2024-08-19 06:06 | W.CVOR.SURPR ---
Addendum entered and electronically signed by Tigre Lind MD 08/19/24 06:57:
Mr. Diogo Marie is okay to progress to surgery today. He has done extremely well following his CEA. I discussed his case with his instructional services librarian, Dr. Demetris Hodges, I confirmed that his RCA was IFR negative at the time of cardiac catheterization,
I will therefore not perform a surgical bypass to this vessel. His LAD and its major diagonal branch are the planned surgical targets. Given his questionable history of PAF (patient is a poor historian and does not recall being told that he had
atrial fibrillation, but PAF is documented in his medical record) and intolerance of anticoagulation, I will exclude his left atrial appendage. Catheter-based A-fib ablation can be entertained in the future if the patient has continued clinically
significant PAF.
Thank you
Tigre Lind MD
[phone]
Original Note:
CVOR Surgeon Immed Pre Op
-
I have examined this patient prior to performance of the scheduled procedure.
The patient's condition is unchanged from the time of the dictated/written History and
Physical and the patient is able to undergo the scheduled procedure.
--- NOTE | 2024-08-19 06:15 | PTCARENOTE ---
Patient A+A+Ox3. No neurological deficits noted. AM lab work collected and sent. Patient given 4% Chlorhexidine bath. Linens changed. Pre-Op medications given. Patient voided and brushed teeth. Resting in bed. Dr. Lind arrived and spoke
with patient. call center analyst to CVOR.
[2024-08-19 07:28] LABS: ACT+ - POC 96 Seconds (82-134)
[2024-08-19] MEDS: VANCOCIN 530 MG IV (07:30)
[2024-08-19 08:20] LABS: Urine Albumin 2+ (Neg - Trace); Urine Bilirubin Negative (Negative); Urine Character Clear (Clear); Urine Color Yellow; Urine Glucose Negative (Negative); Urine Ketone Negative (Negative); Urine Leukocyte Negative (Negative); Urine Nitrite Negative (Negative); Urine Occult Blood 3+ (Negative); Urine Urobilinogen Negative (Neg - 1+)
[2024-08-19 09:21] LABS: Urine Amorphous Seen; Urine Urothelial Cell 0-2 /LPF (FEW)
[2024-08-19 09:22] LABS: Urine White Cell 0-2 /HPF (0-5)
[2024-08-19 09:31] LABS: ACT+ - POC 672 Seconds (82-134)
[2024-08-19 09:55] LABS: B.E. - POC 2.2 mmol/L; Glucose - POC 132 mg/dl (70-99); HCO3 - POC 26 mmol/L (21-28); Hematocrit - POC 40 % PCV (42-52); Hemodilution- POC No; Hemoglobin Calculated - POC 13.7; Ionized Calcium - POC 1.12 mmol/L (1.15-1.33); Lactate - POC 0.69 mmol/L (0.36-0.75); O2 Saturation %Calculated-POC 99.7 % (94-98); PCO2 - POC 36 mmHg (35-48); PO2 - POC 187 mmHg (83-108); POC Comment PRE; Potassium - POC 3.4 mmol/L (3.5-5.1); Sodium - POC 140 mmol/L (136-145); Specimen Type - POC Arterial; pH - POC 7.46 (7.35-7.45)
[2024-08-19 10:07] LABS: ACT+ - POC 637 Seconds (82-134)
[2024-08-19 10:32] LABS: Glucose - POC 137 mg/dl (70-99); HCO3 - POC 29 mmol/L (21-28); Hematocrit - POC 29 % PCV (42-52); Hemodilution- POC Yes; Hemoglobin Calculated - POC 9.9; Ionized Calcium - POC 1.01 mmol/L (1.15-1.33); Lactate - POC 0.62 mmol/L (0.36-0.75); PCO2 - POC 41 mmHg (35-48); PO2 - POC 369 mmHg (83-108); POC Comment CPB; Potassium - POC 3.9 mmol/L (3.5-5.1); Sodium - POC 139 mmol/L (136-145); Specimen Type - POC Arterial; pH - POC 7.46 (7.35-7.45)
[2024-08-19 10:43] LABS: ACT+ - POC 529 Seconds (82-134)
--- NOTE | 2024-08-19 10:57 | CM ---
Reviewed chart. Mr. Marie is in the operating room today. Prior to admission he [id number] with his life partner in a one story home with three steps to enter. Prior to admission he ambulates with a rollator and independent with adls. He has a
rollator at home. He has a prescription plan and uses [facility]. Medical work-up in progress. The discharge plan is to return home with his life partner and a home visit by the Transitional Care Nurse when medically stable.
[2024-08-19 10:59] LABS: B.E. - POC 3.9 mmol/L; Glucose - POC 175 mg/dl (70-99); HCO3 - POC 29 mmol/L (21-28); Hematocrit - POC 31 % PCV (42-52); Hemodilution- POC Yes; Hemoglobin Calculated - POC 10.6; Ionized Calcium - POC 1.12 mmol/L (1.15-1.33); Lactate - POC 1.29 mmol/L (0.36-0.75); O2 Saturation %Calculated-POC 99.8 % (94-98); PCO2 - POC 42 mmHg (35-48); PO2 - POC 234 mmHg (83-108); POC Comment CPB; Potassium - POC 4.4 mmol/L (3.5-5.1); Sodium - POC 138 mmol/L (136-145); Specimen Type - POC Arterial; pH - POC 7.44 (7.35-7.45)
[2024-08-19] MEDS: ASPIR LOW (ENTERIC COATED) PO (11:05)
[2024-08-19] MEDS: FEOSOL PO (11:05)
[2024-08-19] MEDS: HEPARIN SC (11:05)
[2024-08-19] MEDS: COREG PO (11:05)
[2024-08-19] MEDS: FOLVITE PO (11:05)
[2024-08-19] MEDS: ZYLOPRIM PO (11:06)
[2024-08-19] MEDS: VITAMIN B1 PO (11:06)
[2024-08-19] MEDS: KCL PO (11:06)
[2024-08-19] MEDS: SENOKOT-S PO (11:06)
[2024-08-19] MEDS: LASIX IV (11:06)
[2024-08-19] MEDS: VISBIOME PO (11:06)
[2024-08-19] MEDS: LIPITOR PO (11:06)
[2024-08-19 11:10] LABS: ACT+ - POC 469 Seconds (82-134)
[2024-08-19 11:27] LABS: B.E. - POC 1.5 mmol/L; Glucose - POC 187 mg/dl (70-99); HCO3 - POC 26 mmol/L (21-28); Hematocrit - POC 33 % PCV (42-52); Hemodilution- POC Yes; Hemoglobin Calculated - POC 11.3; Lactate - POC 1.65 mmol/L (0.36-0.75); O2 Saturation %Calculated-POC 99.8 % (94-98); PCO2 - POC 38 mmHg (35-48); PO2 - POC 229 mmHg (83-108); POC Comment CPB; Sodium - POC 140 mmol/L (136-145); Specimen Type - POC Arterial; pH - POC 7.44 (7.35-7.45)
[2024-08-19 11:29] LABS: ACT+ - POC 101 Seconds (82-134)
[2024-08-19] MEDS: NEURONTIN PO (11:48)
--- NOTE | 2024-08-19 12:07 | W.IMMPOSTOP ---
Addendum entered and electronically signed by Tigre Lind MD 08/19/24 13:32:
[id number]
Original Note:
Surgical Immed Post Op Note
-
CARDIAC SURGERY OPERATIVE NOTE:
Preoperative Dx:
CAD - abn EKG, stress
RBBB and LAFB; Hx of AF
Significant ADELINA s/p R CEA on 08/15
Hx of vertebral artery angioplasty
Hx of TIA in 2002 (difficulty walking/talking)
Hx of atraumatic SAH
Hx of hypovolemic shock & ROWDY following RP bleed on Eliquis
Morbid obesity (BMI 38.0)
DOUGLAS not on CPAP
Maisonneuve fracture w/ malunion
HTN/HChol
DM
Hx of PE
Gout
Asthma
Postoperative Dx:
Same
Procedures:
1) Median sternotomy
2) Takedown of JUNI (narrow pedicle)
3) Endoscopic harvest/prep of RLE GSV
4) CABG x 2 (JUNI to LAD, GSV to D1)
5) ELAA (45mm)
Surgeon:
Tigre Lind M.D.
Stem Processing Machine Operator:
Moshe MaguireAYudi-C.; endoscopic harvest/prep of RLE GSV; assistant merchandise manager throughout
Alfonso Florence P.A.-C.; gkgfks-pigl-bhav lower sternotomy closure
Anesthesia:
Cayden Murray M.D. and Timbo HerrmannN.A.
Perfusion:
Scotty Landa C.C.P.; XC: 64min, CPB: 85min
Findings:
JUNI was a very healthy appearing conduit w/ torrential blood flow; ELD 3.0mm
GSV was very healthy appearing conduite w/ ELD 3.5mm
LAD was visible on the epicardial surface w/ mild scattered calcifications, ELD 2.75mm at midpoint anastomosis
D1 was intramyocardial, it was able to be identified at its ecb-gq-acjpke aspect, ELD 1.50mm w/ jlnfxt-lr-kuxv tobin at anastomosis
THANG was of windsock morphology, good visual placement of AtriClip
Good flow in both grafts (visual & U/S flow probe assessment)
Post-CUATE: LVEF 60-65%, no RWMA, mild MR (unchanged), THANG confirmed excluded
Implants:
Epicardial V-wire x 1
AtriClip [address]
CT x 4 (B/L pleural, inferior mediastinal, superior mediastinal)
Sternal wires x 7
Sternal 'running man' plate w/ 8 - 12mm screw
Sternal 'square' plate w/ 4 - 12mm screws
Complications:
None
Transfusions:
None
Condition:
54 sinus (0.1/0.0), 120/68, CVP 14; 98%
GTTS: nicardipine 3, insulin 0.5, precedex 0.5
Stable/guarded to CVICU
[2024-08-19 12:45] LABS: Glucose - Point of Care 135 mg/dl (70-99)
--- NOTE | 2024-08-19 12:46 | W.PN.INTV ---
Today's Communication / Plan
Recommendations
s/p cab, maintained on vent postop
SBT planning per team, extubate per protocol
Wean off pressors, insulin gtt
will follow
Assessment
-
69-year-old male with complex medical history including known coronary disease based on catheterization 07/03/2024, bilateral carotid disease, now status post right carotid endarterectomy in anticipation of bypass surgery
Coronary disease with multivessel disease per catheterization 07/03/2024 ([facility])
s/p CABG x 2 08/19/24
Perioperative MV
S/p R CEA 08/15
Hypertension urgency, systolic 190
Conditions present prior to admission
Moderate to severe obstructive lung disease, FEV1 2.06/61%
Spirometry 07/18/2024
History of stroke/TIA 2002
Vertebral artery angioplasty at [place]
History of subarachnoid hemorrhage
Difficulty walking, uses a cane
Hypertension/hyperlipidemia
History of right bundle branch block/LAFB
Diabetes
History of pulmonary embolism, patient cannot recall
History of asthma
Sleep apnea per records, not on CPAP
History of hemorrhagic shock with retroperitoneal bleed in the past
While on anticoagulation
Chronic atrial fibrillation
[id number]-cumi-jjrw history of smoking quit 2002
Daily alcohol use, 3 tequila cocktails a day
Plan
S/p CAB x 2 POD #0
Titrate off pressors per protocol
ECHO reviewed with low/normal function
PA catheter readings reviewed
Management of chest tubes per primary service
Intubated/sedated, initiate SAT when able
Pain control
RASS goal of 0 to -1
Intubated for procedure, SBT trial when patient able to spontaneously breath
Current vent settings: SIMV 550/14/60/5+
ABG(s) reviewed/adequate
CXR with no obvious opacities/infiltrates, low lung volumes, ETT in good position, lines/tubes in place
Extubate per protocol
Maintain supplement oxygen as needed
No prior known history of pulmonary disease--Unfortunately, patient is not a very good historian
Cannot recall history of pulm embolism
Initially could not recall history of stent placement of vertebral artery but then recalls after discussion
Cannot recall any history of bleeding in the brain per records, subarachnoid hemorrhage
Cannot recall any history of atrial fibrillation
Patient does recall bleed in the abdomen in 2023 while at [facility] while on anticoagulation and Lovenox
PFT obtained here showing moderate obstruction, history of DOUGLAS not on CPAP
BP management per team, gtt as indicated
Appears to be in sinus rhythm based on telemetry
CXR not obtained--baseline reviewed/stable
EKG/3 normal sinus rhythm with right bundle branch block.
Aspirin therapy per vascular protocol
Advance diet as tolerated following extubation
GI prophylaxis if indicated for mechanical ventilation >48 hours
Monitor critical I/O's
Dennis/chest tube output
Hb/platelets postoperatively stable
Trend CBC for now
Can transfuse if indicated for Hb <7, plt <50 in surgical patients
DVT prophylaxis including SCDs
Insulin protocol initiated and ongoing
Transition to SQ/off as indicated per team
Discussed with patient importance of alcohol moderation/cessation given multiple comorbidities. 'Why would I do that'
This will be an ongoing discussion
We will follow
Diagnostic Data
Chest X-Ray: 08/19/24-small volumes, ETT/chest tube and cordis in place/good position, no acute findings, post op changes
07/18/24-No acute disease of the chest. Mild mid left lung atelectasis versus scarring. New
CT Scan: CHEST 07/20/24- 1. Severe coronary arterial calcification, consistent with the patient's history of coronary artery disease.
2. Linear scarring or subsegmental atelectasis within the lingular segment. Lungs are otherwise clear.
3. 8.3 cm intramuscular lipoma within the soft tissues of the left lateral chest wall, likely benign.
Echo: CUATE 08/19/24- Normal biventricular systolic function with no wall motion abnormalities. The LVEF is 60-65% by visual inspection. Mild mitral regurgitation. Trace aortic insufficiency. Trace tricuspid insufficiency. Grade III atheromatous
disease of the arch and descending thoracic aorta. Normal left atrial appendage.
PFT's: 07/18/2024 FVC 2.69 L 71%, FEV1 1.74 L 61%, ratio 65. Post FEV1 1.8 L 63% (moderate obstruction)
Reports and relevant images were personally reviewed.
Critical Care time 50 mins -- The patient is admitted for acute critical illness for the treatment of vital organ failure and/or prevention of further life-threatening conditions. Total care includes time spent in review of history, physical exam,
medications, hemodynamic/ventilator parameters, laboratory data, imaging and discussion with house staff, pharmacy, respiratory therapy, orthodontist, and nursing.
Subjective Dataa
Subjective Data
Date of Service:
Date of Service: August 19, 2024
Chief Complaint: Laborer Demolition Follow Up
Subjective:
intubated, postop
s/p cad x 2
remains on pressors
Objective Data
Data Reviewed
Vital Signs / I&O / Oxygen:
Vital Signs
Temp Pulse Resp BP Pulse Ox
98.6 F 76 16 171/88 99
08/19/24 05:35 08/19/24 06:00 08/19/24 05:35 08/19/24 05:57 08/19/24 05:35
Intake and Output
08/18/24 08/19/24 08/20/24
06:59 06:59 06:59
Intake Total 820 / 820 680 / 680 0 / 0
Output Total 300 / 300 0 / 0
Balance 520 / 520 680 / 680 0 / 0
SaO2 99
Nasal Cannula flow liters per 2
minute
Physical Exam
General: Comfortable and Other (Carotid incision intact)
HEENT: Normocephalic, Anicteric, Moist Mucous Membranes and Other (Large neck)
Cardiovascular: S1-S2, Regular Rhythm, Murmur (n), Rub (n) and Peripheral Edema (tr)
Respiratory: Clear, Wheeze (n), Crackles (n), Rhonchi (n), ET Tube and Chest Tube
GI: Soft, Non Distended (Morbidly obese) and Non Tender
Neurology: No Motor Deficits (Cranial nerves intact, moves all extremities) and Non Verbal (sedated/intubated)
Skin: Cyanosis (n) and Rash (n)
[2024-08-19 12:47] LABS: Glucose - POC 153 mg/dl (70-99); HCO3 - POC 26 mmol/L (21-28); Hematocrit - POC 31 % PCV (42-52); Hemodilution- POC Yes; Hemoglobin Calculated - POC 10.6; Ionized Calcium - POC 1.32 mmol/L (1.15-1.33); Lactate - POC 2.02 mmol/L (0.36-0.75); O2 Saturation %Calculated-POC 94.1 % (94-98); PCO2 - POC 47 mmHg (35-48); PO2 - POC 76 mmHg (83-108); POC Comment POST; Potassium - POC 3.7 mmol/L (3.5-5.1); Sodium - POC 143 mmol/L (136-145); Specimen Type - POC Arterial; pH - POC 7.35 (7.35-7.45)
[2024-08-19 12:54] LABS: B.E. 0.9 mmol/L; HCO3 26.6 mmol/L (21-28); Ionized Calcium 1.29 mMOL/L (1.15-1.33); O2 Saturation % 99.1 % (94-98); PCO2 46 mmHg (35-48); PO2 95 mmHg (83-108); Potassium 4.1 mMOL/L (3.5-5.1); Sodium 133 mMOL/L (136-145); pH 7.37 (7.35-7.45)
--- NOTE | 2024-08-19 12:58 | W.PN.UPDATE ---
Update Note
Progress Note Update
69-year-old male with complex medical history including HTN, HLD, TIA 2002, carotid stenosis, Celiac w/anemia, AF, DM, PE, gout, DOUGLAS-CPAP, mod COPD, stent in kidney, angioplasty of vertebral artery, Class I obesity (BMI 38) was electively admitted
08/15/24 for right CEA with Dr. Manning and planned CABG today due to 3 VCAD.
IV fluids: 1100
U.O.:� 300
Blood:� none
Wires:� V-wires
Drips: Cardene @ 3, Precedex @ 0.5, Insulin @ 0.5
�
NEURO: sedated, pupils +2mm B/L
RESP: #8OT @22cm> 500/60%/25/09. Lungs clear B/L. 2 mediastinal (35cc on arrival) and R/L pleural (0cc on arrival) chest tubes to -20cm suction. Sanguineous drainage, no air leak, no crepitus
CV: RRR +S1, S2, no S3, no�rub, no murmur. Aquacell to median sternotomy. RIJ w/Slik intact. Right CEA incision intact w/o erythema
ABD: round, soft, no BS
EXT: no edema, +2/4 DP pulses B/L, no femoral bruit, RLE MACK wrap intact; left radial A-line intact
: Dennis with clear yellow urine
�
A/P: POD #0 s/p CABG x 2 (JUNI to LAD, GSV to D1), ELAA (45mm)
Glidesciope for intubation
CUATE: EF�55-60%
- wean FiO2 and extubate
- received Aztreonam + Vanco dago-op>continue Vanc q12h x 2 doses post-op
- OK to pull epicardial wires prior to chest tube removal mariia Lind
# CAD
- OM too small to graft
- will require ASA, Plavix, statin (simvastatin @ home), beta-carlos a (on Coreg 12.5mg BID @ home))
# Hx TIA (2002), carotid stenosis s/p R CEA (POD #4)
- Cardene to maintain MAP 65-75TORR
�
# acute surgical blood loss anemia-expected
- trend CBC
�
�# COPD/DOUGLAS -intolerant of CPAP @ home
- no home inhalers
- may need CPAP on extubation
- former tobacco-quit 2002
# ETOH use
- continue Thiamine/Folic acid
# Class II Obesity (BMI 38)
- calorie controlled diet
- encourage lifestyle modification
�
# Gout
- resume allopurinol when tolerating solids
[2024-08-19 13:02] LABS: INR 1.31; PT 16.6 Sec (11.4-14.6)
[2024-08-19 13:03] LABS: APTT 32.3 Sec (23.4-35.0); Hematocrit 33.3 % (39.0-52.0); Hemoglobin 11.7 g/dL (13.0-18.0)
[2024-08-19 13:05] LABS: Blood Urea Nitrogen 16 mg/dl (9-20); Estimated Creatinine Clearance 115 ml/min; Glucose 149 mg/dl (70-99); Magnesium 2.8 mg/dl (1.6-2.3)
[2024-08-19] MEDS: AZACTAM 2000 MG IV ×2 (13:12)
[2024-08-19] MEDS: STERILE WATER FOR INJECTION 10 ML IV ×2 (13:12→13:13)
[2024-08-19] MEDS: NSS 500 IV (13:13)
--- NOTE | 2024-08-19 13:37 | PTCARENOTE ---
Patient received from CVOR at 1230; Sedated and intubated; Pupils round, reactive, and equal; SB with 1st AVB, RBBB, and Prolonged QT on monitor; VSS; Epicardial V wire present with temporary pacemaker turned off; +1 right DP, +2 left DP and +2
radial pulses present; Lungs diminished at bases; ETT size 8 positioned and secured at 23 cm right lip; Ventilator settings SIMV 14/550/5/5 FiO2 60%; CTx4 to -20 cm wall suction draining bloody drainage - no air leak, tidaling, or crepitus noted;
Hypoactive BS; Dennis catheter in place draining clear, yellow urine; Sternal incision w/ small amount of bloody drainage, right groin puncture glued, approximated, and ecchymotic - NAINA, right leg covered with MACK wrap - CDI. right neck incision
glued, approximated, and ecchymotic - NAIAN; Left radial A-line in place, SLIC present in RIJ Cordis - all lines zeroed and leveled; #20 PIV x2 - #18 RAC and #20 right wrist; Cardene, insulin, and precedex infusing - see nursing flowsheets for further
details; see nursing documentation for further details.
[2024-08-19] MEDS: TYLENOL PO (13:48)
[2024-08-19 14:01] LABS: Glucose - Point of Care 188 mg/dl (70-99)
--- NOTE | 2024-08-19 14:10 | CON.CAR ---
Addendum entered and electronically signed by Emelyn Gunter DO 08/19/24 15:59:
I saw and examined the patient.
The Global Clinical Leader's note was reviewed and I agree with the note.
Comment: Patient was seen and examined with nursing staff present; Currently intubated and sedated postop. Chart/telemetry reviewed. Reviewed intraoperative course with CT surgery VIJI. Patient is a 69-year-old male with who is followed by
cardiology at [facility] Dr. Soriano past medical history significant for multivessel coronary artery disease on cardiac catheterization June 2024, carotid artery stenosis, hypertension, hyperlipidemia, permanent atrial fibrillation, right
bundle branch block, stroke 2002 with vertebral angioplasty, COPD retroperitoneal bleed on anticoagulation who was found to have abnormal stress test on preoperative cardiac clearance. He underwent cardiac catheterization and was found to have
multivessel coronary artery disease in June 2024. She was found to have bilateral carotid artery disease on imaging during workup for CABG. He underwent successful right CEA on 08/15/2024 and now underwent CABG x 2 (ONEILL to LAD, SVG to D1) and
left atrial appendage clipping (45 mm) 08/19/2024. Cardiology being asked to see patient for postop management.
General: Intubated, sedated. Bear hugger.
Neck: + cortis with SGC; right CEA
Heart: Regular, positive S1/S2, No murmur. + CT
Lungs: Decreased breath sounds but clear
Abd: +BS, decreased
Ext: No edema
Plan:
-s/p CABG x 2 (ONEILL to LAD, SVG to diagonal) and Left atrial appendage 45 mm clip 08/19/2024 w/ Dr. Lind
-Seen immediately post op intubated and sedated
-Wean sedation as tolerated with anticipation of extubation later this afternoon
-Hemodynamically stable not on any pressors
-Post op ECG sinus bradycardia with first-degree AV block, right bundle branch block
-Postop chest x-ray with no pneumothorax
-Continue to monitor renal function and electrolytes
-Postop hemoglobin stable at 11.7. Patient did not receive any blood products in OR
-Bilateral carotid artery stenosis, status post right CEA 08/15/[address] Manning
-Usual postop care
- Eventual resumption of beta-carlos a, aspirin, Plavix and statin
Will follow with you
Original Note:
Consultation
Consultation Request
Date/Time Consultation Requested: 08/19/2024
Date/Time Consultation Performed: 08/19/2024
Requesting Provider: Dr. Tigre Lind
Performing Provider: Rachelle Guzmán PA-C for Dr. Emelyn Gunter
Reason for Consultation: CABG x2 THANG clip
Medical History
-
History of Present Illness:
Patient is a 69-year-old male with who is followed by cardiology at [facility] Dr. Soriano past medical history significant for multivessel coronary artery disease on cardiac catheterization June 2024, carotid artery stenosis,
hypertension, hyperlipidemia, permanent atrial fibrillation, right bundle branch block, stroke 2002 with vertebral angioplasty, COPD retroperitoneal bleed on anticoagulation who was found to have abnormal stress test on preoperative cardiac
clearance. He underwent cardiac catheterization and was found to have multivessel coronary artery disease in June 2024. She was found to have bilateral carotid artery disease on imaging during workup for CABG. He underwent successful right
CEA on 08/15/2024 and now underwent CABG x 2 (ONEILL to LAD, SVG to D1) and left atrial appendage clipping (45 mm) 08/19/2024. Cardiology being asked to see patient for postop management.
PMH:
Carotid stenosis
s/p Right CEA 08/15/2024
Multivessel coronary artery disease
Hypertension
Hyperlipidemia
Permanent atrial fibrillation
Right bundle branch block/LAFB
TIA/stroke 2002
Vertebral artery angioplasty 2002 at [place]
COPD, moderate to severe
[id number] history of smoking quit 2002, obesity,
History of subarachnoid hemorrhage
Obesity
History of pulmonary embolism, patient cannot recall
History of asthma
Celiac with anemia
Sleep apnea per records, not on CPAP
History of hemorrhagic shock with retroperitoneal bleed in the past while on anticoagulation
Daily alcohol use, 3 tequila cocktails a day
Past Medical History
Past Medical History: Other (See HPI)
Past Surgical History: Orthopedic (Left ankle surgery) and Other (Vertebral artery angioplasty at [place] 2002, renal stent, oral surgery, cataract surgery, right carotid endarterectomy 08/15/2024)
Social History
Tobacco: Former Smoker
Alcohol: Daily (3-4 tequila cocktails)
Drug: None
Personal: Partner
Living: With Family
Family History
Family History: CAD and Hypertension
Allergies / Home Medications
Allergy/AdvReac Type Severity Reaction Status Date / Time
amoxicillin Allergy Swelling Verified 08/15/24 06:20
ampicillin Allergy Swelling Verified 08/15/24 06:20
cephalexin [From Keflex] Allergy Swelling Verified 08/15/24 06:20
Cephalosporins Allergy Unknown Verified 08/15/24 06:20
penicillin V Allergy PER PT Verified 08/15/24 06:20
ABLE TO
TOLERATE
PENICILLIINS
Penicillins Allergy PER PT Verified 08/15/24 06:20
ABLE TO
TOLERATE
PENICILLINS
�Medication �Instructions �Recorded �Confirmed �Type
allopurinol 100 mg tablet 100 mg PO DAILY Gout 07/12/24 08/15/24 History
amlodipine 5 mg tablet 5 mg PO DAILY Blood Pressure 07/12/24 08/16/24 History
aspirin 81 mg tablet,delayed 81 mg PO DAILY Blood Clot 07/12/24 08/15/24 History
release Prevention/Tx
carvedilol 12.5 mg tablet 12.5 mg PO BID Blood Pressure 07/12/24 08/15/24 History
folic acid 1 mg tablet 1 mg PO DAILY Supplement 07/12/24 08/15/24 History
potassium chloride 20 mEq 20 meq PO DAILY Electrolyte 07/12/24 08/15/24 History
tablet,extended release Repletion
thiamine mononitrate (vit B1) 100 100 mg PO DAILY Supplement 07/12/24 08/15/24 History
mg tablet
Lactobacillus acidophilus 10 10,000 mmu cells PO DAILY 08/07/24 08/15/24 History
billion cell capsule (Probiotic) Supplement
ferrous sulfate 325 mg (65 mg 325 mg PO DAILY Supplement 08/07/24 08/15/24 History
iron) tablet (iron)
simvastatin 20 mg tablet 20 mg PO DAILY High Cholesterol 08/07/24 08/15/24 History
turmeric 400 mg capsule 400 mg PO DAILY Supplement 08/07/24 08/15/24 History
Review of Systems
-
Unable to obtain full review of systems at this time due to: Patient Intubation
Physical Exam
Vital Signs
Temp Pulse Resp BP Pulse Ox
96.3 F L 65 14 99/69 95
08/19/24 14:00 08/19/24 14:05 08/19/24 14:00 08/19/24 14:00 08/19/24 14:05
GEN: Intubated and sedated
HEENT: supple, anicteric, mmm
LUNGS: CTA anteriorly, no wheezes/rales
CV: Reg, S1/S2, no murmur, rub or gallop
ABD: soft, BS+, NT/ND
EXT: Right lower extremity wrapped in Romaine wrapped, no edema, clubbing or cyanosis
NEURO: Unable to assess as patient intubated and sedated
SKIN: No rash, warm, dry, pink
Lab Results
08/19/24 12:42
Yls-I-Djgubevskwt Pept 343 pg/ml 08/18/24 04:53
Impression / Plan
-
PCP: Demetris Ocampo
Test Operator: Demetris Soriano
Impression:
Elective admission for 08/01/2024 for right CEA
Multivessel coronary artery disease
Status post CABG x 2 (ONEILL to LAD, SVG to diagonal) 08/19/2024
Left atrial appendage clip 08/19/2024
Carotid stenosis
s/p Right CEA 08/15/2024
Hypertension
Hyperlipidemia
Permanent atrial fibrillation
Right bundle branch block/LAFB
TIA/stroke 2002
Vertebral artery angioplasty 2002 at [place]
COPD, moderate to severe
[id number] history of smoking quit 2002, obesity,
History of subarachnoid hemorrhage
Obesity
History of pulmonary embolism, patient cannot recall
History of asthma
Celiac with anemia
Sleep apnea per records, not on CPAP
History of hemorrhagic shock with retroperitoneal bleed in the past while on anticoagulation
Daily alcohol use, 3 tequila cocktails a day
Postop CUATE 08/19/2024: VEF 60 to 65%. No regional wall motion abnormality. Mild MR. Left atrial appendage confirmed occluded
Echocardiogram 10/25/2023 ([facility]): EF 50 to 55%, 57.4% by [place]. Abnormal septal motion. Mild MR.
Cardiac catheterization 07/03/2024: LM: 50% distal extending into LAD and circumflex bifurcation. LAD proximal 90%, 90% mid. Left circumflex proximal 50% lesion, distal 75 to 80%. RCA proximal 50 to 60%, mid 20 to 30%
CTA head and neck 07/24/2024: Right ICA 90% stenosis. Left ICA 70% stenosis
Plan:
-s/p CABG x 2 (ONEILL to LAD, SVG to diagonal) and Left atrial appendage 45 mm clip 08/19/2024 w/ Dr. Lind
-Seen immediately post op and remains intubated and sedated
-Wean sedation as tolerated with anticipation of extubation later this afternoon
-Hemodynamically stable not on any pressors
-Post op ECG sinus bradycardia with first-degree AV block, right bundle branch block
-Postop chest x-ray with no pneumothorax
-Continue to monitor renal function and electrolytes
-Postop hemoglobin stable at 11.7. Patient did not receive any blood products in OR
-Bilateral carotid artery stenosis, status post right CEA 08/15/[address] Manning
-Usual postop care
- Eventual resumption of beta-carlos a, aspirin, Plavix and statin
Data Reviewed
-
EKG: Report Reviewed by me, Discussed with Physician and Discussed with Nurse
Radiology: Report Reviewed by me, Discussed with Physician and Discussed with Nurse
Labs: Labs Reviewed by me, Discussed with Physician and Discussed with Nurse
Old Records: Reviewed
--- NOTE | 2024-08-19 14:51 | PTCARENOTE ---
RT in room and patient placed on CPAP trial. EPOC due at 1522
[2024-08-19 14:59] LABS: Glucose - Point of Care 118 mg/dl (70-99)
[2024-08-19 15:29] LABS: Blood Urea Nitrogen - POC 16 mg/dl (3-120); Chloride - POC 105 mmol/L (96-111); Creatinine - POC 0.64 mg/dl (0.3-1.0); Glucose - POC 123 mg/dl (70-99); HCO3 - POC 26 mmol/L (21-28); Hematocrit - POC 37 % PCV (42-52); Hemodilution- POC No; Hemoglobin Calculated - POC 12.7; Ionized Calcium - POC 1.24 mmol/L (1.15-1.33); Lactate - POC 1.35 mmol/L (0.36-0.75); O2 Saturation %Calculated-POC 95.2 % (94-98); PCO2 - POC 44 mmHg (35-48); PO2 - POC 78 mmHg (83-108); Sodium - POC 143 mmol/L (136-145); Specimen Type - POC Arterial; pH - POC 7.39 (7.35-7.45)
--- NOTE | 2024-08-19 15:37 | PTCARENOTE ---
EPOC ABG reviewed with LULI Isaac; RT at bedside; Patient extubated at 1535 and placed on 6L NC
--- NOTE | 2024-08-19 15:41 | RESPNOTE ---
15:35 Extubated patient to 6L nasal cannula 97%
[2024-08-19 16:04] LABS: Glucose - Point of Care 126 mg/dl (70-99)
[2024-08-19] MEDS: OFIRMEV 100 IV (16:17)
[2024-08-19] MEDS: TORADOL 15 MG IV (16:18)
[2024-08-19] MEDS: LOW STRENGTH ASPIRIN 81 MG PO (16:19)
[2024-08-19 17:00] LABS: Glucose - Point of Care 114 mg/dl (70-99)
[2024-08-19] MEDS: NEURONTIN 100 MG PO ×2 (18:08→21:59)
[2024-08-19] MEDS: DILAUDID 0.5 MG IV (18:09)
[2024-08-19] MEDS: PACERONE 200 MG PO ×2 (18:12→21:59)
[2024-08-19 18:28] LABS: Hematocrit 34.3 % (39.0-52.0); Hemoglobin 12.1 g/dL (13.0-18.0); Platelet Count 175 10^3/uL (130-400)
[2024-08-19 19:03] LABS: Glucose - Point of Care 94 mg/dl (70-99)
[2024-08-19] MEDS: SENOKOT-S 1 TABLET PO (19:57)
[2024-08-19] MEDS: VANCOCIN 200 IV (19:57)
[2024-08-19 20:06] LABS: Glucose - Point of Care 113 mg/dl (70-99)
--- NOTE | 2024-08-19 21:26 | PTCARENOTE ---
Patient resting comfortably in bed; States pain is improved after receiving PRN IV Dilaudid; Patient denies any nausea at this time
[2024-08-19] MEDS: TYLENOL 1000 MG PO (21:59)
[2024-08-19 22:05] LABS: Glucose - Point of Care 114 mg/dl (70-99)
--- NOTE | 2024-08-19 23:45 | PTCARENOTE ---
assumed care of pt from previous RN. pt A&Ox4, bedrest s/p CABG. SR w/ 1st degree AVB, RBBB on tele-monitor. temp epicardial v-wires, plugged into pulse generator, off. CT x4 (mediastinal x2, R & L pleural) to -20cm wall suction, draining
sanguineous drainage. abd s/n, round, obese. hypoactive BS. tolerating PO meds and ice chips. love catheter draining clear, yellow urine. all surgical sites stable, CDI. R IJ Cordis w/ SLIC. PIV x2 intact. see worklist for complete nursing
assessment, interventions, VS, and I&Os.
[2024-08-20] VITALS (21 sets, daily range): BP systolic 93–157; BP diastolic 56–84; PULSE 83; O2SAT 92; BMI 37.2
[2024-08-20 00:03] LABS: Glucose - Point of Care 103 mg/dl (70-99)
[2024-08-20] MEDS: ROXICODONE 5 MG PO ×3 (01:21→13:41)
[2024-08-20 02:04] LABS: Glucose - Point of Care 114 mg/dl (70-99)
--- NOTE | 2024-08-20 03:15 | PTCARENOTE ---
assessment remains unchanged. VSS. CT drainage WNL. AM labs collected and sent.
[2024-08-20 03:25] LABS: Mixed Venous O2 Saturation 67.6 %
[2024-08-20 03:27] LABS: Hematocrit 32.9 % (39.0-52.0); Hemoglobin 11.3 g/dL (13.0-18.0); Mean Corp Hgb Conc. 34.3 g/dL (33.0-37.0); Mean Corpuscular Hgb 32.8 pg (27.0-31.0); Mean Corpuscular Volume 95.6 fL (80.0-94.0); Mean Platelet Volume 9.7 fL (7.4-10.4); Platelet Count 182 10^3/uL (130-400); Red Blood Cell Count 3.44 10^6/uL (4.70-6.10); Red Cell Dist. Width 13.2 % (11.5-14.5); White Blood Cell Count 14.3 10^3/uL (4.8-10.8)
--- NOTE | 2024-08-20 03:36 | W.PN.CT ---
Today's Communication / Plan
-
Plan:
-No major issues overnight. Hemodynamically and neurologically intact
-Pt was successfully extubated yesterday @ 1530
-Currently in NSR @ 65 bpm
-Off all drips but insulin per protocol
-No swan, MVO2 67.6%, U/O since OR 1085 mL
-Chest tube output: 2meds 185/315, R/L pleurals 85/150. CXR looks clear to my eyes without significant atelectasis/pleural effusion, no ptx. F/u official report
-Cont. current meds (ASA, Plavix, Lipitor, Amiodarone, BB if BP permits)
-Mag oxide placed on hold, mg 2.5 today
-D/C'd a-line and SLIC @ 0445
-D/C'd love catheter @ 0600
-Telemetry phase when off insulin gtt per protocol
-Maintain cordis
-Encourage use of IS
-Wean o2 as tolerated
-OOB into chair/Ambulate as tolerated/ PT-OT consult
Assessment / Plan
-
Assessment:
-S/P CABG x 2 (ONEILL-LAD; SVG-D1)/R EVH /THANG exclusion (45 mm), by Dr. Lind, 08/19/24, pod#1
-Multivessel CAD
-LVEF 60-65% per intraop CUATE
-Mild MR
-RBBB and LAFB
-Chronic A-fib
-ADELINA S/p RCEA 08/15/24
-Hx vertebral artery angioplasty
-Hx atraumatic SAH
-Hx of TIA in 2002 (difficulty walking/talking)
-Left Maisonneuve fracture w/ malunion
-Gout
-Hypertension
-Hyperlipidemia
-T2DM (Hgb A1C 5.3)
-Class 2 obesity (BMI 38)
-DOUGLAS (not on CPAP)
-Asthma
-COPD, moderate to severe
-Hx pulmonary embolism, pt cannot recall
-Former tobacco use (30 pk/yr, quit 2002)
-Daily alcohol use (3 tequila cocktails a day)
-Hx hemorrhagic shock with retroperitoneal bleed in the past while on Eliquis
-S/P Right renal stent
-S/P Vertebral artery angioplasty at [place] 2002
-S/P Cataract , renal stent, oral surgery, cataract surgery, right carotid endarterectomy 08/15/2024)
-Acute postop blood loss/Anemia (stable without blood transfusion)
-Acute postop atelectasis
-Acute postop hypovolemia with subsequent hypervolemia
-Acute postop hypermagnesemia
Discussed patient care with: Cardiology, Nursing, Respiratory Therapy, Pharmacy and Care Team
Subjective
Procedure
S/P CABG x 2 (ONEILL-LAD; SVG-D1)/R EVH /THANG exclusion (45 mm), by Dr. Lind, 08/19/24
-
Date of Service: August 20, 2024
Pt c/o incisional pain, otherwise feels well
Objective Data
-
Lab Results
08/20/24 03:10
PT 16.6 Sec (11.4-14.6) H 08/19/24 12:42
INR 1.31 08/19/24 12:42
APTT 32.3 Sec (23.4-35.0) 08/19/24 12:42
Vital Signs
Vital Signs
Temp Pulse Resp BP Pulse Ox
97.9 F 61 14 128/69 94
08/20/24 03:00 08/20/24 03:15 08/20/24 03:15 08/20/24 03:00 08/20/24 03:15
CT Intake/Output/Weight
08/19/24 08/19/24 08/20/24
06:59 18:59 06:59
Intake Total 480 / 680 365.4 / 797.4 432.0 / 797.4
Output Total 865 / 1420 555 / 1420
Balance 480 / 680 -499.6 / -622.6 -123.0 / -622.6
SaO2: 94 (2L)
Physical Exam
-
General: Awake, Oriented and AOx3
Cardiovascular: Regular rate & rhythm, No Murmurs, No Rub and No Gallop
Respiratory: Decreased Breath Sounds (at bases, otherwise clear)
Sternum: Stable
Incision: Clean, Dry, Intact and Dressing Intact
Extremities: Other (+trace edema)
Data Reviewed
-
Lab Results: Results Reviewed
Medications: Active Meds Reviewed
Chest X-Ray: Report Reviewed and Image Reviewed
ECG: Report Reviewed and Image Reviewed
[2024-08-20 03:47] LABS: Blood Urea Nitrogen 19 mg/dl (9-20); Calcium 8.7 mg/dl (8.4-10.2); Carbon Dioxide 31 mmol/L (22-30); Chloride 106 mmol/L (98-107); Estimated Creatinine Clearance 115 ml/min; Glucose 105 mg/dl (70-99); Magnesium 2.5 mg/dl (1.6-2.3); Potassium 4.3 mmol/L (3.5-5.1); Sodium 139 mmol/L (135-145); eGFR > 60.00
[2024-08-20 04:31] LABS: Glucose - Point of Care 92 mg/dl (70-99)
[2024-08-20] MEDS: TYLENOL 1000 MG PO ×3 (05:36→21:48)
[2024-08-20 05:55] LABS: Glucose - Point of Care 93 mg/dl (70-99)
--- NOTE | 2024-08-20 07:18 | W.PN.ANS.POP ---
Anesthesia Post Operative
- Anesthesia Post Op Note
Vital Signs Stable-See Nursing Note: Yes
Airway Patent: Yes
Adequate Pain Control: Yes
Change in Mental Status: No
Current Postoperative Nausea & Vomiting: No
Anesthesia Complications: No
General Anesthetic Recall: No
Unplanned Admission: No
Post Op Hydration Adequate: Yes
[2024-08-20 08:09] LABS: Glucose - Point of Care 103 mg/dl (70-99)
[2024-08-20] MEDS: VANCOCIN 200 IV (08:40)
[2024-08-20] MEDS: BACTROBAN 2% OINTMENT 1 APPLIC NASAL ×2 (08:40→20:46)
[2024-08-20] MEDS: LOPRESSOR 12.5 MG PO ×2 (08:41→20:46)
[2024-08-20] MEDS: PLAVIX 75 MG PO (08:41)
[2024-08-20] MEDS: LOW STRENGTH ASPIRIN 81 MG PO (08:41)
[2024-08-20] MEDS: LIPITOR 80 MG PO (08:41)
[2024-08-20] MEDS: SENOKOT-S 1 TABLET PO ×2 (08:41→20:46)
[2024-08-20] MEDS: PROTONIX 40 MG PO (08:42)
[2024-08-20] MEDS: ZYLOPRIM 100 MG PO (08:42)
[2024-08-20] MEDS: PACERONE 200 MG PO ×3 (08:42→21:48)
[2024-08-20] MEDS: FEOSOL 325 MG PO (08:42)
[2024-08-20] MEDS: FOLVITE 1 MG PO (08:42)
[2024-08-20] MEDS: VITAMIN B1 100 MG PO (08:42)
[2024-08-20] MEDS: VITAMIN C 500 MG PO (08:42)
[2024-08-20] MEDS: NEURONTIN 100 MG PO ×3 (08:42→21:48)
[2024-08-20] MEDS: LIDOCAINE 4% PATCH TOPICAL (08:50)
--- NOTE | 2024-08-20 09:27 | PTCARENOTE ---
Patient received from shift supervisor resting oob in chair, AAO x 3, c/o moderate sternal discomfort, medicated for such (see MAR). RIJ Cordis w/kvo infusing. Insulin infusing peripherally, titrating per glycemic protocol. Epicardial V-wire to pulse
generator, off. Mediastinal chest tubes x 2, Y-connected to one pleurevac, R and L pleural chest tubes Y-connected to separate pleurevac - both placed to -20cm suction w/no air leaks noted. Dennis d/c'd earlier, DTV, denies urge. All procedural sites
stable. Patient updated to plan of care for the day, in agreement. See work list for full assessment and interventions performed.
[2024-08-20 10:06] LABS: Glucose - Point of Care 136 mg/dl (70-99)
[2024-08-20] MEDS: NSS IV (11:17)
[2024-08-20 12:01] LABS: Glucose - Point of Care 87 mg/dl (70-99)
--- NOTE | 2024-08-20 12:09 | PTCARENOTE ---
VS obtained, assessment stable. Patient remains oob in chair, states pain controlled, awaiting lunch.
--- NOTE | 2024-08-20 12:11 | CM ---
Reviewed chart. Met with Mr. Marie and his son to review discharge plans. He states he is feeling well. He states prior to admission he resides with a roommate in a one story home with three steps to enter. He states prior to admission he
ambulates with a rollator. He states he has a rollator and wheelchair at home. He states he does not use the wheelchair. He states he does not have a prescription plan and he uses [facility]. He states his roommate does work outside the
home but he can be available if needed. We reviewed a home visit by the Transitional Care Nurse. He is agreeable to a home visit. Medical work-up in progress. The discharge plan is to return home with his roommate and a home visit by the
Transitional Care Nurse when medically stable.
--- NOTE | 2024-08-20 12:38 | W.PN.CARDCBS ---
Addendum entered and electronically signed by Lenny Donaldson MD 08/20/24 12:44:
I saw and examined the patient.
The TELEVISION DIRECTOR or PA's note was reviewed and I agree with the note.
Comment: General: Well developed, well nourished in NAD.
Neck: Supple, no JVD, HJR, carotids +2 B/L, no bruits bilaterally.
Heart: Non displaced PMI, RRR, no murmurs, No S3, S4, no rubs.
Lungs: Scattered rhonchi
Sternal dressings noted
Extremities: No clubbing, cyanosis or edema bilaterally.
Neuro: Grossly nonfocal, awake, alert and oriented x3.
Doing well. Remains in sinus rhythm status post CABG
Original Note:
Today's Communication / Plan
-
continue post op care
Impression / Plan
-
PCP: Demetris Ocampo
Bank Credit Card Collection Clerk: Demetris Soriano
Impression:
Elective admission for 08/01/2024 for right CEA
Multivessel coronary artery disease
Status post CABG x 2 (ONEILL to LAD, SVG to diagonal) 08/19/2024
Left atrial appendage clip 08/19/2024
Carotid stenosis
s/p Right CEA 08/15/2024
Hypertension
Hyperlipidemia
Permanent atrial fibrillation
Right bundle branch block/LAFB
TIA/stroke 2002
Vertebral artery angioplasty 2002 at [place]
COPD, moderate to severe
[id number] history of smoking quit 2002, obesity,
History of subarachnoid hemorrhage
Obesity
History of pulmonary embolism, patient cannot recall
History of asthma
Celiac with anemia
Sleep apnea per records, not on CPAP
History of hemorrhagic shock with retroperitoneal bleed in the past while on anticoagulation
Daily alcohol use, 3 tequila cocktails a day
Postop CUATE 08/19/2024: VEF 60 to 65%. No regional wall motion abnormality. Mild MR. Left atrial appendage confirmed occluded
Echocardiogram 10/25/2023 ([facility]): EF 50 to 55%, 57.4% by [place]. Abnormal septal motion. Mild MR.
Cardiac catheterization 07/03/2024: LM: 50% distal extending into LAD and circumflex bifurcation. LAD proximal 90%, 90% mid. Left circumflex proximal 50% lesion, distal 75 to 80%. RCA proximal 50 to 60%, mid 20 to 30%
CTA head and neck 07/24/2024: Right ICA 90% stenosis. Left ICA 70% stenosis
Plan:
-s/p CABG x 2 (ONEILL to LAD, SVG to diagonal) and Left atrial appendage 45 mm clip 08/19/2024
-doing well. sitting in chair
-hgb 11.3. continue asa, plavix
-in SR on review of tele. has known 1st degree av block and RBBB
-continue post op care, encouraged IS
-Bilateral carotid artery stenosis, status post right CEA 08/15/[address] Manning
-prior to admission was on coreg 12.5mg BID, norvasc 5mg daily. resume post op as able.
-OP follow up with [facility] cardiology
-d/w patient and family at bedside
Progress Note - Bank Credit Card Collection Clerk
Subjective
Date of Service: August 20, 2024
reports pain well controlled at present.
Objective
Labs:
08/20/24 03:10
08/20/24 03:10
Labs
Hgb 11.3 g/dL (13.0-18.0) L 08/20/24 03:10
Hct 32.9 % (39.0-52.0) L 08/20/24 03:10
Plt Count 182 10^3/uL (130-400) 08/20/24 03:10
PT 16.6 Sec (11.4-14.6) H 08/19/24 12:42
INR 1.31 08/19/24 12:42
APTT 32.3 Sec (23.4-35.0) 08/19/24 12:42
Sodium 139 mmol/L (135-145) 08/20/24 03:10
Potassium 4.3 mmol/L (3.5-5.1) 08/20/24 03:10
BUN 19 mg/dl (9-20) 08/20/24 03:10
Creatinine 0.7 mg/dL (0.7-1.3) 08/20/24 03:10
Glucose 105 mg/dl (70-99) H 08/20/24 03:10
Vital Signs and I&O:
Vital Signs
Temp Pulse Resp BP Pulse Ox
98.4 F 73 16 122/71 94
08/20/24 12:00 08/20/24 12:00 08/20/24 12:00 08/20/24 12:00 08/20/24 12:00
Vital Signs
Temp Pulse Resp BP Pulse Ox
98.4 F 73 16 122/71 94
08/20/24 12:00 08/20/24 12:00 08/20/24 12:00 08/20/24 12:00 08/20/24 12:00
Intake & Output
08/18/24 08/19/24 08/20/24 08/21/24
07:59 07:59 07:59 07:59
Intake Total 820 / 820 680 / 680 839.2 / 861.2 570.3 / 570.3
Output Total 300 / 300 1585 / 1585 60 / 60
Balance 520 / 520 680 / 680 -745.8 / -723.8 510.3 / 510.3
Physical Exam
Physical Exam
GEN: No distress, awake, alert, oriented x3. sitting in chair
HEENT: supple, anicteric, mmm, eomi
LUNGS: CTA B/L, no wheezes/rales
CV: Reg, S1/S2, no murmur
EXT: No cyanosis, clubbing. trace edema of B/L LE
NEURO: Gross non-focal
SKIN: Warm, pink, dry. No rash. Sternotomy dressing c/d/i, mild amount of dried blood on dressing noted
--- NOTE | 2024-08-20 13:10 | W.PN.INTV ---
Today's Communication / Plan
Recommendations
Doing well post extubation, stable on RA
Chest tubes in place, discontinue per team
Encouraged OOB, PT/ambulation
OP pulmonary FU recommended
Transfer process initiated to tele, we will sign off at this time please call with questions
Assessment
-
69-year-old male with complex medical history including known coronary disease based on catheterization 07/03/2024, bilateral carotid disease, now status post right carotid endarterectomy in anticipation of bypass surgery
Coronary disease with multivessel disease per catheterization 07/03/2024 ([facility])
s/p CABG x 2 08/19/24
Perioperative MV
S/p R CEA 08/15
Hypertension urgency, systolic 190
Conditions present prior to admission
Moderate to severe obstructive lung disease, FEV1 2.06/61%
Spirometry 07/18/2024
History of stroke/TIA 2002
Vertebral artery angioplasty at [place]
History of subarachnoid hemorrhage
Difficulty walking, uses a cane
Hypertension/hyperlipidemia
History of right bundle branch block/LAFB
Diabetes
History of pulmonary embolism, patient cannot recall
History of asthma
Sleep apnea per records, not on CPAP
History of hemorrhagic shock with retroperitoneal bleed in the past
While on anticoagulation
Chronic atrial fibrillation
[id number]-ahwu history of smoking quit 2002
Daily alcohol use, 3 tequila cocktails a day
Plan
S/p CAB x 2 POD #1
Titrate off pressors per protocol
ECHO reviewed with normal function
PA catheter readings reviewed
Management of chest tubes per primary service
Intubated/sedated, initiate SAT when able
Pain control
RASS goal of 0 to -1
Intubated for procedure, extubated and doing well
ABG(s) reviewed/adequate
CXR with stable postop changes
Maintain supplement oxygen as needed/weaned to RA today
No prior known history of pulmonary disease--Unfortunately, patient is not a very good historian
PFT obtained here showing moderate obstruction, history of DOUGLAS not on CPAP
BP management per team, gtt as indicated
Appears to be in sinus rhythm based on telemetry
CXR not obtained--baseline reviewed/stable
EKG/3 normal sinus rhythm with right bundle branch block.
Aspirin therapy per vascular protocol
Advance diet as tolerated following extubation
GI prophylaxis if indicated for mechanical ventilation >48 hours
Monitor critical I/O's
Dennis/chest tube output
Hb/platelets postoperatively stable
Trend CBC for now
Can transfuse if indicated for Hb <7, plt <50 in surgical patients
DVT prophylaxis including SCDs
Insulin protocol initiated and weaned to off
Transitioned to SQ as indicated per team
Discussed with patient importance of alcohol moderation/cessation given multiple comorbidities. 'Why would I do that'
This will be an ongoing discussion
Transfer to tele
Diagnostic Data
Chest X-Ray: 08/19/24-small volumes, ETT/chest tube and cordis in place/good position, no acute findings, post op changes
07/18/24-No acute disease of the chest. Mild mid left lung atelectasis versus scarring. New
CT Scan: CHEST 07/20/24- 1. Severe coronary arterial calcification, consistent with the patient's history of coronary artery disease.
2. Linear scarring or subsegmental atelectasis within the lingular segment. Lungs are otherwise clear.
3. 8.3 cm intramuscular lipoma within the soft tissues of the left lateral chest wall, likely benign.
Echo: CUATE 08/19/24- Normal biventricular systolic function with no wall motion abnormalities. The LVEF is 60-65% by visual inspection. Mild mitral regurgitation. Trace aortic insufficiency. Trace tricuspid insufficiency. Grade III atheromatous
disease of the arch and descending thoracic aorta. Normal left atrial appendage.
PFT's: 07/18/2024 FVC 2.69 L 71%, FEV1 1.74 L 61%, ratio 65. Post FEV1 1.8 L 63% (moderate obstruction)
Reports and relevant images were personally reviewed.
Critical Care time 35 mins -- The patient is admitted for acute critical illness for the treatment of vital organ failure and/or prevention of further life-threatening conditions. Total care includes time spent in review of history, physical exam,
medications, hemodynamic/ventilator parameters, laboratory data, imaging and discussion with house staff, pharmacy, respiratory therapy, sound tester, and nursing.
Subjective Dataa
Subjective Data
Date of Service:
Date of Service: August 20, 2024
Chief Complaint: Process Camera Operator Follow Up
Subjective:
Doing well, no complaints
Off gtts
Objective Data
Data Reviewed
Vital Signs / I&O / Oxygen:
Vital Signs
Temp Pulse Resp BP Pulse Ox
98.4 F 73 16 122/71 94
08/20/24 12:00 08/20/24 12:00 08/20/24 12:00 08/20/24 12:00 08/20/24 12:00
Intake and Output
08/19/24 08/20/24 08/21/24
06:59 06:59 06:59
Intake Total 680 / 680 839.2 / 839.2 570.3 / 570.3
Output Total 1585 / 1585 60 / 60
Balance 680 / 680 -745.8 / -745.8 510.3 / 510.3
SaO2 [CPAP/PSV] 98
SaO2 [SIMV] 93
SaO2 94
Nasal Cannula flow liters per 2
minute
Physical Exam
General: Comfortable and Other (Carotid incision intact)
HEENT: Normocephalic, Anicteric, Moist Mucous Membranes and Other (Large neck)
Cardiovascular: S1-S2, Regular Rhythm, Murmur (n), Rub (n) and Peripheral Edema (tr)
Respiratory: Clear, Wheeze (n), Crackles (n), Rhonchi (n) and Chest Tube
GI: Soft, Non Distended (Morbidly obese) and Non Tender
Neurology: Awake, Alert, Oriented and No Motor Deficits (Cranial nerves intact, moves all extremities)
Skin: Cyanosis (n) and Rash (n)
Labs/Micro/Reports
Lab Data
08/20/24 03:10
08/20/24 03:10
--- NOTE | 2024-08-20 16:14 | PTCARENOTE ---
VS obtained, assessment unchanged. Patient remains oob in chair, visitor at bedside. Voided small amount miguelito urine, bladder scan performed.
--- NOTE | 2024-08-20 21:00 | PTCARENOTE ---
Assumed care of pt from dayshift RN. Walking rounds completed. Pt is sinus w/ 1st degree HB and RBBB on the tele monitor. HR 70-80s. Temporary epicardial v-wire insulated. Palpable pulses throughout. +1 LE edema. Pt on RA. POX 92%. Lung sounds
diminished B/L. Occasional productive cough. Deep breathing and IS encouraged. Mediastinal CTx2 and L/R pleural CT to -20 suction, no airleak noted, and output WNL. Abdomen round/nontender. +BS. Pt able to void in urinal. Urine is concentrated. No
nausea. All surgical sites stable. Left ankle weakness from hx of sprain. Right IJ cordis and PIV x2 intact. Pt ambulated w/ rolling walker and assistx2. Pt resting in bed at this time. See worklist for full nursing assessment and interventions.
Call alcantara within reach.
[2024-08-21] VITALS (19 sets, daily range): BP systolic 118–168; BP diastolic 64–88; PULSE 73–82; O2SAT 96–97; BMI 39.2
--- NOTE | 2024-08-21 00:12 | W.PN.CT ---
Today's Communication / Plan
-
No major issues overnight. �
Consider removal of Chest tube output: 2 meds =55, R/L pleural =105�
Cont. current meds (ASA, Plavix, Lipitor, Amiodarone, BB if BP permits)�
Maintain cordis�
Ok to pull wires prior to CT DC
20 meq of K given
Encourage use of IS�
Wean o2 as tolerated �
OOB into chair/Ambulate as tolerated/ PT-OT consult�
Assessment / Plan
-
Assessment:
-S/P CABG x 2 (ONEILL-LAD; SVG-D1)/R EVH /THANG exclusion (45 mm), by Dr. Lind, 08/19/24, pod#2
-Multivessel CAD
-LVEF 60-65% per intraop CUATE
-Mild MR
-RBBB and LAFB
-Chronic A-fib
-ADELINA S/p RCEA 08/15/24
-Hx vertebral artery angioplasty
-Hx atraumatic SAH
-Hx of TIA in 2002 (difficulty walking/talking)
-Left Maisonneuve fracture w/ malunion
-Gout
-Hypertension
-Hyperlipidemia
-T2DM (Hgb A1C 5.3)
-Class 2 obesity (BMI 38)
-DOUGLAS (not on CPAP)
-Asthma
-COPD, moderate to severe
-Hx pulmonary embolism, pt cannot recall
-Former tobacco use (30 pk/yr, quit 2002)
-Daily alcohol use (3 tequila cocktails a day)
-Hx hemorrhagic shock with retroperitoneal bleed in the past while on Eliquis
-S/P Right renal stent
-S/P Vertebral artery angioplasty at [place] 2002
-S/P Cataract , renal stent, oral surgery, cataract surgery, right carotid endarterectomy 08/15/2024)
-Acute postop blood loss/Anemia (stable without blood transfusion)
-Acute postop atelectasis
-Acute postop hypovolemia with subsequent hypervolemia
-Acute postop hypermagnesemia
Subjective
Procedure
S/P CABG x 2 (ONEILL-LAD; SVG-D1)/R EVH /THANG exclusion (45 mm), by Dr. Lind, 08/19/24
-
Date of Service: August 21, 2024
Objective Data
-
PT 16.6 Sec (11.4-14.6) H 08/19/24 12:42
INR 1.31 08/19/24 12:42
APTT 32.3 Sec (23.4-35.0) 08/19/24 12:42
Vital Signs
Vital Signs
Temp Pulse Resp BP Pulse Ox
98.4 F 78 18 125/70 92
08/20/24 20:44 08/20/24 20:44 08/20/24 20:44 08/20/24 16:05 08/20/24 21:00
CT Intake/Output/Weight
08/20/24 08/20/24 08/21/24
06:59 18:59 06:59
Intake Total 473.8 / 839.2 610.3 / 620.3 10 / 620.3
Output Total 720 / 1585 365 / 650 285 / 650
Balance -246.2 / -745.8 245.3 / -29.7 -275 / -29.7
SaO2: 92
Physical Exam
-
General: Awake
Cardiovascular: Regular rate & rhythm
Respiratory: Clear
Sternum: Stable
Incision: Clean, Dry and Intact
Extremities: No Edema
[2024-08-21] MEDS: ROXICODONE 5 MG PO (00:46)
--- NOTE | 2024-08-21 00:55 | PTCARENOTE ---
No acute changes in assessment. Pt is SR w/ 1st degree and RBBB on the tele monitor. HR 70-80s. BP stable. Pt on 2 L NC. POX 96%. CT assessment unchanged. Pt voiding in urinal as needed. All surgical sites stable. See worklist for pain medication
administration. Call alcantara within reach.
[2024-08-21 04:17] LABS: Hematocrit 31.8 % (39.0-52.0); Mean Corp Hgb Conc. 34.6 g/dL (33.0-37.0); Mean Corpuscular Hgb 32.6 pg (27.0-31.0); Mean Corpuscular Volume 94.4 fL (80.0-94.0); Mean Platelet Volume 9.8 fL (7.4-10.4); Platelet Count 184 10^3/uL (130-400); Red Blood Cell Count 3.37 10^6/uL (4.70-6.10); Red Cell Dist. Width 13.3 % (11.5-14.5); White Blood Cell Count 15.6 10^3/uL (4.8-10.8)
--- NOTE | 2024-08-21 04:33 | PTCARENOTE ---
No acute change in assessment. Pt is SR w/ RBBB and 1st degree HB on the tele monitor. HR 70s. BP stable. Pt on 2 L NC. POX 95-96%. CT assessment unchanged. Pt voiding in the urinal w/o issue. All surgical sites stable. Labs drawn and sent. Pt
repositioned in bed. No c/o pain at this time. Call alcantara within reach.
[2024-08-21 04:47] LABS: Blood Urea Nitrogen 16 mg/dl (9-20); Calcium 8.6 mg/dl (8.4-10.2); Carbon Dioxide 30 mmol/L (22-30); Chloride 101 mmol/L (98-107); Estimated Creatinine Clearance > 125 ml/min; Glucose 137 mg/dl (70-99); Potassium 3.9 mmol/L (3.5-5.1); Sodium 135 mmol/L (135-145); eGFR > 60.00
[2024-08-21] MEDS: KCL 20 MEQ PO (06:07)
[2024-08-21] MEDS: TYLENOL 1000 MG PO ×3 (06:08→21:38)
--- NOTE | 2024-08-21 08:08 | PTCARENOTE ---
Assumed care of patient from rn shift mgr RN. AAO x 3 sitting up in the chair. Denies complaint at present. SR BBB w/ 1 degree AVB on monitor. Room air 94%, Using IS independently. Chest tubes x 4 to - 20 cm suction. No air leak or crepitus
noted. Abdomen obese, round, positive bowel sounds. Assist x 1 with rolling walker into bathroom to have a bowel movement x 2 this am. Surgical sites c,d,i. Pulses palpable. Plus 1 lower extremity edema appreciated.
[2024-08-21] MEDS: PROTONIX 40 MG PO (08:16)
[2024-08-21] MEDS: NEURONTIN 100 MG PO ×3 (08:16→21:38)
[2024-08-21] MEDS: PACERONE 200 MG PO ×3 (08:17→21:38)
[2024-08-21] MEDS: LOPRESSOR 25 MG PO ×2 (08:17→20:25)
[2024-08-21] MEDS: VITAMIN B1 100 MG PO (08:17)
[2024-08-21] MEDS: VITAMIN C 500 MG PO (08:17)
[2024-08-21] MEDS: LOW STRENGTH ASPIRIN 81 MG PO (08:17)
[2024-08-21] MEDS: LASIX 40 MG IV (08:17)
[2024-08-21] MEDS: PLAVIX 75 MG PO (08:17)
[2024-08-21] MEDS: ZYLOPRIM 100 MG PO (08:17)
[2024-08-21] MEDS: BACTROBAN 2% OINTMENT 1 APPLIC NASAL ×2 (08:17→20:26)
[2024-08-21] MEDS: FEOSOL 325 MG PO (08:17)
[2024-08-21] MEDS: LIPITOR 80 MG PO (08:17)
[2024-08-21] MEDS: FOLVITE 1 MG PO (08:18)
[2024-08-21] MEDS: SENOKOT-S PO ×2 (08:18→20:26)
[2024-08-21] MEDS: LIDOCAINE 4% PATCH TOPICAL (08:18)
--- NOTE | 2024-08-21 08:23 | W.PN.CARDCBS ---
Addendum entered and electronically signed by Yann Yanez DO 08/21/24 09:58:
I saw and examined the patient.
The Acid Crane Operator's note was reviewed and I agree with the note.
Comment:
Plan:
Continue postop care
Remains sinus rhythm with stable heart rate and blood pressure
Chest tube management as per CT surgery.
EF preserved postop CUATE.
Continue dual antiplatelet therapy.
Outpatient follow-up [facility] cardiology
Original Note:
Today's Communication / Plan
-
continue post op care
in SR
Impression / Plan
-
PCP: Demetris Ocampo
Music Publisher: Demetris Soriano
Impression:
Elective admission for 08/01/2024 for right CEA
Multivessel coronary artery disease
Status post CABG x 2 (ONEILL to LAD, SVG to diagonal) 08/19/2024
Left atrial appendage clip 08/19/2024
Carotid stenosis
s/p Right CEA 08/15/2024
Hypertension
Hyperlipidemia
Permanent atrial fibrillation
Right bundle branch block/LAFB
TIA/stroke 2002
Vertebral artery angioplasty 2002 at [place]
COPD, moderate to severe
[id number] history of smoking quit 2002, obesity,
History of subarachnoid hemorrhage
Obesity
History of pulmonary embolism, patient cannot recall
History of asthma
Celiac with anemia
Sleep apnea per records, not on CPAP
History of hemorrhagic shock with retroperitoneal bleed in the past while on anticoagulation
Daily alcohol use, 3 tequila cocktails a day
Postop CUATE 08/19/2024: VEF 60 to 65%. No regional wall motion abnormality. Mild MR. Left atrial appendage confirmed occluded
Echocardiogram 10/25/2023 ([facility]): EF 50 to 55%, 57.4% by [place]. Abnormal septal motion. Mild MR.
Cardiac catheterization 07/03/2024: LM: 50% distal extending into LAD and circumflex bifurcation. LAD proximal 90%, 90% mid. Left circumflex proximal 50% lesion, distal 75 to 80%. RCA proximal 50 to 60%, mid 20 to 30%
CTA head and neck 07/24/2024: Right ICA 90% stenosis. Left ICA 70% stenosis
Plan:
-s/p CABG x 2 (ONEILL to LAD, SVG to diagonal) and Left atrial appendage 45 mm clip 08/19/2024
-doing well. sitting in chair. plan for CTs out today
-hgb 11.0. continue asa, plavix
-in SR on review of tele overnight. has known 1st degree av block and RBBB
-lopressor dose increased this AM as BPs elevated.
-diurese
-continue post op care, OOB/IS
-Bof note, with bilateral carotid artery stenosis, status post right CEA 08/15/[address] Manning
-prior to admission was on coreg 12.5mg BID, norvasc 5mg daily. resume post op as able.
-OP follow up with [facility] cardiology
-d/w nursing
Progress Note - Music Publisher
Subjective
Date of Service: August 21, 2024
no complaints
Objective
Labs:
08/21/24 04:07
08/21/24 04:07
Labs
Hgb 11.0 g/dL (13.0-18.0) L 08/21/24 04:07
Hct 31.8 % (39.0-52.0) L 08/21/24 04:07
Plt Count 184 10^3/uL (130-400) 08/21/24 04:07
PT 16.6 Sec (11.4-14.6) H 08/19/24 12:42
INR 1.31 08/19/24 12:42
APTT 32.3 Sec (23.4-35.0) 08/19/24 12:42
Sodium 135 mmol/L (135-145) 08/21/24 04:07
Potassium 3.9 mmol/L (3.5-5.1) 08/21/24 04:07
BUN 16 mg/dl (9-20) 08/21/24 04:07
Creatinine 0.6 mg/dL (0.7-1.3) L 08/21/24 04:07
Glucose 137 mg/dl (70-99) H 08/21/24 04:07
Vital Signs and I&O:
Vital Signs
Temp Pulse Resp BP Pulse Ox
99.3 F 86 16 158/77 95
08/21/24 07:51 08/21/24 08:00 08/21/24 07:51 08/21/24 04:03 08/21/24 07:51
Vital Signs
Temp Pulse Resp BP Pulse Ox
99.3 F 86 16 158/77 95
08/21/24 07:51 08/21/24 08:00 08/21/24 07:51 08/21/24 04:03 08/21/24 07:51
Intake & Output
08/19/24 08/20/24 08/21/24 08/22/24
07:59 07:59 07:59 07:59
Intake Total 680 / 680 839.2 / 861.2 1090.3 / 1090.3
Output Total 1585 / 1585 1080 / 1080
Balance 680 / 680 -745.8 / -723.8 10.3 / 10.3
Physical Exam
Physical Exam
GEN: No distress, awake, alert, oriented x3. sitting in chair
HEENT: supple, anicteric, mmm, eomi
LUNGS: CTA B/L, no wheezes/rales
CV: Reg, S1/S2, no murmur
EXT: No cyanosis, clubbing. 1+ edema of B/L LE
NEURO: Gross non-focal
SKIN: Warm, pink, dry. No rash. Sternotomy dressing c/d/i, mild amount of dried blood on dressing noted
--- NOTE | 2024-08-21 09:45 | CM ---
Reviewed chart. Met with Mr. Marie and his son to review discharge plans. He states he us feeling well. He states he ambulated in the hallway today with a walker. Prior to admission he resides with a roommate in one story home with three steps to
enter. Prior to admission he ambulates with a rollator. He has a rollator and wheelchair at home. He currently does not use the wheelchair. He states his roommate works outside the home but he can be available if needed. Medical work-up in
progress. The discharge plan is to return home with his roommate and a home visit by the Transitional Care Nurse when medically stable.
--- NOTE | 2024-08-21 11:47 | PTCARENOTE ---
Chest tubes removed by RN x 2, tolerated w/o issue. VSS. Pain well managed, Diuresing well. Assessment otherwise unchanged from prior.
[2024-08-21] MEDS: NSS IV (12:34)
[2024-08-21] MEDS: NORVASC 5 MG PO (13:08)
--- NOTE | 2024-08-21 16:32 | PTCARENOTE ---
Ambulated approx 250 feet with RN, gait steady with walker. VSS. Voiding w/o issue. Assessment unchanged from prior
--- NOTE | 2024-08-21 20:15 | PTCARENOTE ---
assumed care of pt from previous rn. pt AAOx4, NSR w/ AVB and BBB per tele monitor, +1 B/L LE edema, pox 96% on RA, lungs diminished, + productive cough, IS 1500, voids appropriately, +bs, all surgical sites c/d/i. RIJ Cordis and PIVx2 intact. plan
of care discussed questions encouraged
[2024-08-22] VITALS (8 sets, daily range): BP systolic 107–153; BP diastolic 69–99; BMI 38.9
--- NOTE | 2024-08-22 00:06 | PTCARENOTE ---
NSR w/ AVB and BBB HR 60-70s, assessment remains unchanged
--- NOTE | 2024-08-22 04:15 | PTCARENOTE ---
labs obtained, VSS, NSR w/ BBB AVB per tele monitor, assessment remains unchanged
[2024-08-22 04:38] LABS: Hematocrit 30.7 % (39.0-52.0); Hemoglobin 10.7 g/dL (13.0-18.0); Mean Corp Hgb Conc. 34.9 g/dL (33.0-37.0); Mean Corpuscular Hgb 32.6 pg (27.0-31.0); Mean Corpuscular Volume 93.6 fL (80.0-94.0); Mean Platelet Volume 9.5 fL (7.4-10.4); Platelet Count 199 10^3/uL (130-400); Red Blood Cell Count 3.28 10^6/uL (4.70-6.10); Red Cell Dist. Width 13.2 % (11.5-14.5); White Blood Cell Count 15.2 10^3/uL (4.8-10.8)
[2024-08-22 04:59] LABS: Blood Urea Nitrogen 14 mg/dl (9-20); Carbon Dioxide 28 mmol/L (22-30); Chloride 100 mmol/L (98-107); Estimated Creatinine Clearance > 125 ml/min; Magnesium 1.8 mg/dl (1.6-2.3); Sodium 135 mmol/L (135-145); eGFR > 60.00
[2024-08-22 05:08] LABS: Calcium 8.6 mg/dl (8.4-10.2); Glucose 118 mg/dl (70-99); Potassium 3.7 mmol/L (3.5-5.1)
[2024-08-22] MEDS: TYLENOL 1000 MG PO ×3 (06:07→22:19)
--- NOTE | 2024-08-22 06:17 | W.PN.CT ---
Today's Communication / Plan
-
No major issues overnight. �
CTs & wires removed 08/21
remains edematous, cont. diuresis - uop 850ml 12hrs, 1950ml 24hrs
Cont. current meds (ASA, Plavix, Lipitor, Amiodarone, BB if BP permits)�
Maintain cordis�
Encourage use of IS�
tolerating RA
OOB into chair/Ambulate as tolerated/ PT-OT
dispo planning�
Assessment / Plan
-
Assessment:
-S/P CABG x 2 (ONEILL-LAD; SVG-D1)/R EVH /THANG exclusion (45 mm), by Dr. Lind, 08/19/24, pod#3
-Multivessel CAD
-LVEF 60-65% per intraop CUATE
-Mild MR
-RBBB and LAFB
-Chronic A-fib
-ADELINA S/p RCEA 08/15/24
-Hx vertebral artery angioplasty
-Hx atraumatic SAH
-Hx of TIA in 2002 (difficulty walking/talking)
-Left Maisonneuve fracture w/ malunion
-Gout
-Hypertension
-Hyperlipidemia
-T2DM (Hgb A1C 5.3)
-Class 2 obesity (BMI 38)
-DOUGLAS (not on CPAP)
-Asthma
-COPD, moderate to severe
-Hx pulmonary embolism, pt cannot recall
-Former tobacco use (30 pk/yr, quit 2002)
-Daily alcohol use (3 tequila cocktails a day)
-Hx hemorrhagic shock with retroperitoneal bleed in the past while on Eliquis
-S/P Right renal stent
-S/P Vertebral artery angioplasty at [place] 2002
-S/P Cataract , renal stent, oral surgery, cataract surgery, right carotid endarterectomy 08/15/2024)
-Acute postop blood loss/Anemia (stable without blood transfusion)
-Acute postop atelectasis
-Acute postop hypovolemia with subsequent hypervolemia
-Acute postop hypermagnesemia
Discussed patient care with: Care Team
Subjective
Procedure
S/P CABG x 2 (ONEILL-LAD; SVG-D1)/R EVH /THANG exclusion (45 mm), by Dr. Lind, 08/19/24
-
Date of Service: August 22, 2024
Objective Data
-
Lab Results
08/21/24 04:07
08/21/24 04:07
PT 16.6 Sec (11.4-14.6) H 08/19/24 12:42
INR 1.31 08/19/24 12:42
APTT 32.3 Sec (23.4-35.0) 08/19/24 12:42
Vital Signs
Vital Signs
Temp Pulse Resp BP Pulse Ox
99.2 F 71 18 168/88 95
08/21/24 20:00 08/21/24 20:30 08/21/24 20:00 08/21/24 20:23 08/21/24 21:52
CT Intake/Output/Weight
08/21/24 08/21/24 08/22/24
06:59 18:59 06:59
Intake Total 110 / 720.3 910 / 1010 100 / 1010
Output Total 705 / 1070 1110 / 1285 175 / 1285
Balance -595 / -349.7 -200 / -275 -75 / -275
SaO2: 95
Physical Exam
-
General: Awake, Oriented and AOx3
Cardiovascular: Regular rate & rhythm
Respiratory: Equal and Rales
Sternum: Stable
Incision: Clean, Dry and Intact
Extremities: Edema +3
Data Reviewed
-
Lab Results: Results Reviewed
Medications: Active Meds Reviewed
Chest X-Ray: Image Reviewed
Vital Signs / Labs
-
Vital Signs and Labs:
Temp Pulse Resp BP Pulse Ox
98.9 F 68 20 153/69 92
08/22/24 00:04 08/22/24 05:30 08/22/24 04:15 08/22/24 04:26 08/22/24 04:15
08/22/24 04:21
08/22/24 04:21
08/22/24
04:21
WBC 15.2 H
RBC 3.28 L
Hgb 10.7 L
Hct 30.7 L
MCH 32.6 H
Creatinine 0.6 L
Glucose 118 H
--- NOTE | 2024-08-22 09:00 | PTCARENOTE ---
Assumed care of patient. Walking rounds completed with previous RN. Pt assessed while he was sitting in the chair. Pt alert and oriented x4. Pt states he feels 'stiff', see MAR. ZHENG with equal strength throughout. Pt assisted to ambulate in the gómez
200' with rolling walker. Pt tolerated. SR with 1st degree AVB and BBB with rates in the 70s. BP 132/82. Bilateral radial and DP pulses palpable. +2 lower extremity edema. POX 95% on RA. Lungs clear throughout. IS encouraged-1500mL achieved.
Productive cough with coleman sputum. Abdomen soft, round, nontender. +BS +BM. Pt voiding clear yellow urine in the urinal. Tolerating diet. Sternal incision covered with Antibacterial dressing, old drainage outlined. Old chest tube sites approximated
with sutures, AUTOMOTIVE TECHNICIAN INSTRUCTOR. Right groin puncture site approximated, NAINA. Right SVG harvest approximated, AUTOMOTIVE TECHNICIAN INSTRUCTOR. Right IJ cordis and Right wrist PIV, and Right AC PIV intact. See MAR for medication administration. See worklist for complete nursing assessment.
Plan of care reviewed and patient in agreement.
[2024-08-22] MEDS: MAGNESIUM SULFATE 100 IV (09:08)
[2024-08-22] MEDS: ZYLOPRIM 100 MG PO (09:08)
[2024-08-22] MEDS: LIPITOR 80 MG PO (09:09)
[2024-08-22] MEDS: KCL 40 MEQ PO ×2 (09:09→20:28)
[2024-08-22] MEDS: VITAMIN C 500 MG PO (09:09)
[2024-08-22] MEDS: PLAVIX 75 MG PO (09:09)
[2024-08-22] MEDS: PACERONE 200 MG PO ×3 (09:09→22:19)
[2024-08-22] MEDS: NEURONTIN 100 MG PO ×3 (09:09→22:19)
[2024-08-22] MEDS: LOW STRENGTH ASPIRIN 81 MG PO (09:09)
[2024-08-22] MEDS: PROTONIX 40 MG PO (09:09)
[2024-08-22] MEDS: FEOSOL 325 MG PO (09:10)
[2024-08-22] MEDS: VITAMIN B1 100 MG PO (09:10)
[2024-08-22] MEDS: COREG 6.25 MG PO (09:10)
[2024-08-22] MEDS: LASIX 40 MG IV ×2 (09:10→16:34)
[2024-08-22] MEDS: FOLVITE 1 MG PO (09:10)
[2024-08-22] MEDS: BACTROBAN 2% OINTMENT 1 APPLIC NASAL ×2 (09:10→20:28)
[2024-08-22] MEDS: NORVASC 5 MG PO (09:10)
[2024-08-22] MEDS: FLEXERIL 5 MG PO (09:10)
[2024-08-22] MEDS: LIDOCAINE 4% PATCH 1 PATCH TOPICAL (09:11)
[2024-08-22] MEDS: SENOKOT-S PO (09:11)
--- NOTE | 2024-08-22 09:28 | W.PN.CARDCBS ---
Addendum entered and electronically signed by Murray Agrawal MD 08/22/24 13:51:
Attending addendum: No chest pain. Feels well since chest tubes removed.
Gen: Awake, alert, oriented. NAD
Lungs: Clear to bases bilaterally
CV: Regular rhythm
Ext: No edema
RECOMMENDATIONS:
-Slow improvement
-Will follow
-Continue aspirin / clopidogrel
Original Note:
Today's Communication / Plan
-
continue post op care
diurese
Impression / Plan
-
PCP: Demetris Ocampo
Bar Porter: Demetris Soriano
Impression:
Elective admission for 08/01/2024 for right CEA
Multivessel coronary artery disease
Status post CABG x 2 (ONEILL to LAD, SVG to diagonal) 08/19/2024Left atrial appendage clip 08/19/2024
Carotid stenosis
s/p Right CEA 08/15/2024
Hypertension
Hyperlipidemia
Permanent atrial fibrillation
Right bundle branch block/LAFB
TIA/stroke 2002
Vertebral artery angioplasty 2002 at [place]
COPD, moderate to severe
[id number] history of smoking quit 2002, obesity,
History of subarachnoid hemorrhage
Obesity
History of pulmonary embolism, patient cannot recall
History of asthma
Celiac with anemia
Sleep apnea per records, not on CPAP
History of hemorrhagic shock with retroperitoneal bleed in the past while on anticoagulation
Daily alcohol use, 3 tequila cocktails a day
Postop CUATE 08/19/2024: VEF 60 to 65%. No regional wall motion abnormality. Mild MR. Left atrial appendage confirmed occluded
Echocardiogram 10/25/2023 ([facility]): EF 50 to 55%, 57.4% by [place]. Abnormal septal motion. Mild MR.
Cardiac catheterization 07/03/2024: LM: 50% distal extending into LAD and circumflex bifurcation. LAD proximal 90%, 90% mid. Left circumflex proximal 50% lesion, distal 75 to 80%. RCA proximal 50 to 60%, mid 20 to 30%
CTA head and neck 07/24/2024: Right ICA 90% stenosis. Left ICA 70% stenosis
Plan:
-s/p CABG x 2 (ONEILL to LAD, SVG to diagonal) and Left atrial appendage 45 mm clip 08/19/2024
-doing well
-in SR on review of tele overnight. he has known 1st degree av block and RBBB
-continue diuresis
-continue asa, plavix. hgb 10.7
-continue post op care, OOB/IS
-of note, with bilateral carotid artery stenosis, status post right CEA 08/15/[address] Manning
-prior to admission was on coreg 12.5mg BID, norvasc 5mg daily. resume post op as able.
-OP follow up with [facility] cardiology
-d/w nursing
Progress Note - Bar Porter
Subjective
Date of Service: August 22, 2024
feeling well.
Objective
Labs:
08/22/24 04:21
08/22/24 04:21
Labs
Hgb 10.7 g/dL (13.0-18.0) L 08/22/24 04:21
Hct 30.7 % (39.0-52.0) L 08/22/24 04:21
Plt Count 199 10^3/uL (130-400) 08/22/24 04:21
PT 16.6 Sec (11.4-14.6) H 08/19/24 12:42
INR 1.31 08/19/24 12:42
APTT 32.3 Sec (23.4-35.0) 08/19/24 12:42
Sodium 135 mmol/L (135-145) 08/22/24 04:21
Potassium 3.7 mmol/L (3.5-5.1) 08/22/24 04:21
BUN 14 mg/dl (9-20) 08/22/24 04:21
Creatinine 0.6 mg/dL (0.7-1.3) L 08/22/24 04:21
Glucose 118 mg/dl (70-99) H 08/22/24 04:21
Vital Signs and I&O:
Vital Signs
Temp Pulse Resp BP Pulse Ox
98.9 F 77 20 153/69 92
08/22/24 00:04 08/22/24 07:00 08/22/24 04:15 08/22/24 04:26 08/22/24 04:15
Vital Signs
Temp Pulse Resp BP Pulse Ox
98.9 F 77 20 153/69 92
08/22/24 00:04 08/22/24 07:00 08/22/24 04:15 08/22/24 04:26 08/22/24 04:15
Intake & Output
08/20/24 08/21/24 08/22/24 08/23/24
07:59 07:59 07:59 07:59
Intake Total 839.2 / 861.2 1090.3 / 1090.3 640 / 640
Output Total 1585 / 1585 1080 / 1080 1950 / 1950
Balance -745.8 / -723.8 10.3 / 10.3 -1310 / -1310
Physical Exam
Physical Exam
GEN: No distress, awake, alert, oriented x3. sitting in chair
HEENT: supple, anicteric, mmm, eomi
LUNGS: CTA B/L, no wheezes/rales
CV: Reg, S1/S2, no murmur
EXT: No cyanosis, clubbing. 1+ edema of B/L LE
NEURO: Gross non-focal
SKIN: Warm, pink, dry. No rash. Sternotomy dressing c/d/i, mild amount of dried blood on dressing noted
--- NOTE | 2024-08-22 11:22 | CM ---
Reviewed chart. Met with Mr. Marie to review discharge plans. He states he is feeling well and maybe able to go home soon. He states he ambulates in the hallway with his rollator. We reviewed a home visit by the Transitional Care Nurse. He is
agreeable to a home visit. Prior to admission he resides with a roommate in a one story home with three steps to enter. Prior to admission he was independent with adls and ambulates with a rollator. He has a rollator and wheelchair at home.
Currently not using the wheelchair. His roommate does work outside the home but can be available if needed. He joselin not have a prescription plan and uses [facility]. Medical work-up in progress. The discharge plan is to return home with his
roommate and a home visit by the Transitional Care Nurse when medically stable.
--- NOTE | 2024-08-22 12:30 | PTCARENOTE ---
Pt reassessed. VSS. Pt independent in the room, reports no concerns.
[2024-08-22] MEDS: NSS IV (13:27)
--- NOTE | 2024-08-22 16:45 | PTCARENOTE ---
Pt reassessed. Pt assisted OOB for dinner. VSS. Pt denies pain.
[2024-08-22] MEDS: COREG 12.5 MG PO (20:28)
[2024-08-22] MEDS: SENOKOT-S 1 TABLET PO (20:28)
--- NOTE | 2024-08-22 20:55 | PTCARENOTE ---
Assumed care of pt from jos RN. Walking rounds completed. Pt AAOx3. SR w/ 1st degree AVB and RBBB on the tele monitor. HR 70s. BP stable. Palpable pulses throughout. +2 LE edema. SANJEEV stockings on. SCDs applied. Pt is 96% on RA. Lung sounds
diminished in the B/L bases. Productive cough. Deep breathing and IS encouraged. CT sites intact and AUTOMOTIVE TIRE TESTER. Abdomen round/nontender. +BS. Pt voiding w/o issue. All surgical sites stable. PIV x2 intact. Pt ambulates w/ rolling walker. Resting in bed at
this time and instructed to ring if needs to get OOB. Denies pain. See worklist for full nursing assessment and interventions. Call alcantara within reach.
[2024-08-23] VITALS (9 sets, daily range): BP systolic 115–152; BP diastolic 78–88; BMI 38.5
--- NOTE | 2024-08-23 00:31 | PTCARENOTE ---
No acute change in assessment. Pt remains SR w/ 1st degree and BBB on the tele monitor. HR 70s. BP stable. Pt is 95% on RA. All surgical sites stable. Voiding as needed in the urinal. Denies pain at this time. Call alcantara within reach.
--- NOTE | 2024-08-23 01:33 | W.PN.CT ---
Today's Communication / Plan
-
No major issues overnight. �
Cordis out
remains edematous, cont. diuresis
Replace K, PO Mg restarted
Cont. current meds (ASA, Plavix, Lipitor, Amiodarone, BB)��
Pulmonary toilet�
tolerating RA
OOB into chair/Ambulate as tolerated/ PT-OT
discharge planning
Assessment / Plan
-
Assessment:
-S/P CABG x 2 (ONEILL-LAD; SVG-D1)/R EVH /THANG exclusion (45 mm), by Dr. Lind, 08/19/24, pod#4
-Multivessel CAD
-LVEF 60-65% per intraop CUATE
-Mild MR
-RBBB and LAFB
-Chronic A-fib
-ADELINA S/p RCEA 08/15/24
-Hx vertebral artery angioplasty
-Hx atraumatic SAH
-Hx of TIA in 2002 (difficulty walking/talking)
-Left Maisonneuve fracture w/ malunion
-Gout
-Hypertension
-Hyperlipidemia
-T2DM (Hgb A1C 5.3)
-Class 2 obesity (BMI 38)
-DOUGLAS (not on CPAP)
-Asthma
-COPD, moderate to severe
-Hx pulmonary embolism, pt cannot recall
-Former tobacco use (30 pk/yr, quit 2002)
-Daily alcohol use (3 tequila cocktails a day)
-Hx hemorrhagic shock with retroperitoneal bleed in the past while on Eliquis
-S/P Right renal stent
-S/P Vertebral artery angioplasty at [place] 2002
-S/P Cataract , renal stent, oral surgery, cataract surgery, right carotid endarterectomy 08/15/2024)
-Acute postop blood loss/Anemia (stable without blood transfusion)
-Acute postop atelectasis
-Acute postop hypovolemia with subsequent hypervolemia
-Acute postop hypermagnesemia
Subjective
Procedure
S/P CABG x 2 (ONEILL-LAD; SVG-D1)/R EVH /THANG exclusion (45 mm), by Dr. Lind, 08/19/24
-
Date of Service: August 23, 2024
Objective Data
-
Lab Results
08/23/24 03:58
08/23/24 03:58
PT 16.6 Sec (11.4-14.6) H 08/19/24 12:42
INR 1.31 08/19/24 12:42
APTT 32.3 Sec (23.4-35.0) 08/19/24 12:42
Vital Signs
Vital Signs
Temp Pulse Resp BP Pulse Ox
98.7 F 71 18 151/88 95
08/23/24 00:18 08/23/24 00:18 08/23/24 00:18 08/23/24 00:18 08/23/24 00:18
CT Intake/Output/Weight
08/22/24 08/22/24 08/23/24
06:59 18:59 06:59
Intake Total 100 / 1010 960 / 960
Output Total 850 / 1960 1475 / 2475 1000 / 2475
Balance -750 / -950 -515 / -1515 -1000 / -1515
SaO2: 95
Physical Exam
-
General: AOx3
Cardiovascular: Regular rate & rhythm
Respiratory: Decreased Breath Sounds
Sternum: Stable
Incision: Dressing Intact
Extremities: Edema +2
--- NOTE | 2024-08-23 04:01 | PTCARENOTE ---
No change in assessment. VSS. Pt voiding w/o issue in the urinal. Labs drawn and sent. Denies pain at this time. Call alcantara within reach.
[2024-08-23 04:05] LABS: Hematocrit 29.7 % (39.0-52.0); Hemoglobin 10.5 g/dL (13.0-18.0); Mean Corp Hgb Conc. 35.4 g/dL (33.0-37.0); Mean Corpuscular Volume 93.4 fL (80.0-94.0); Mean Platelet Volume 9.4 fL (7.4-10.4); Platelet Count 234 10^3/uL (130-400); Red Blood Cell Count 3.18 10^6/uL (4.70-6.10); Red Cell Dist. Width 13.3 % (11.5-14.5); White Blood Cell Count 10.8 10^3/uL (4.8-10.8)
[2024-08-23 04:35] LABS: Blood Urea Nitrogen 14 mg/dl (9-20); Calcium 7.9 mg/dl (8.4-10.2); Carbon Dioxide 27 mmol/L (22-30); Chloride 104 mmol/L (98-107); Estimated Creatinine Clearance > 125 ml/min; Glucose 114 mg/dl (70-99); Magnesium 1.9 mg/dl (1.6-2.3); Potassium 3.7 mmol/L (3.5-5.1); Sodium 137 mmol/L (135-145); eGFR > 60.00
[2024-08-23] MEDS: TYLENOL 1000 MG PO (05:58)
[2024-08-23] MEDS: KCL 40 MEQ PO ×2 (05:58→07:54)
--- NOTE | 2024-08-23 07:16 | W.DCSUMMARY ---
Discharge Summary
Discharge Data
Date of Admission: 08/15/24
Date of Discharge: 08/23/24
Total time spent discharging patient (in min): 40
-
Pending Results: No
Hospital Course
Primary care physician:
Dr. Ocampo
Outpatient manager sustainability:
Dr. Soriano
Inpatient consultants:
corrective therapy aide, DCA
Procedures:
1. CABG x 2 (JUNI to LAD, GSV to D1) and ELAA #45
2. Right carotid endarterectomy with bovine pericardial patch angioplasty and intraoperative EEG/SSEP monitoring.
Primary Diagnosis:
1. multivessel coronary artery disease
Secondary Diagnoses:
1. CAD - abn EKG, stress
2. RBBB and LAFB; Hx of AF
3. Significant ADELINA s/p R CEA on 08/15
4. Hx of vertebral artery angioplasty
5. Hx of TIA in 2002 (difficulty walking/talking)
6. Hx of atraumatic SAH
7. Hx of hypovolemic shock  ROWDY following RP bleed on
8. Morbid obesity (BMI 38.0)
9. DOUGLAS not on CPAP
10. Maisonneuve fracture w/ malunion
11. HTN/HChol
12. DM
13. Hx of PE
14. Gout.
15. Asthma
HPI: 69-year-old male seen in the office by Dr. Lind presented initially for an elective right carotid endarterectomy on 08/15 and then a subsequent CABG on 08/19.
Hospital course: Patient was electively admitted on 08/15 for a right carotid enterectomy with Dr. Manning. Postoperatively he was on Cardene for blood pressure management and did well. Vascular surgery then signed off and patient was transferred to [facility]
surgery service for a CABG on Monday. On 08/19 patient was taken to the OR with Dr. Lind for a CABG x 2. Postoperatively he returned to the CVICU on Cardene, Precedex, and insulin. Precedex was weaned off and patient was extubated by 1530. On
08/20 postoperative day 1 patient was started on oral antihypertensive which she tolerated well. PT/OT was consulted. Dennis catheter was discontinued. On 08/21 postoperative day 2, patient's epicardial wires were pulled along with his mediastinal
chest tubes. Patient was diuresed with 40 mg of IV Lasix and Lopressor was increased. On 08/22 postoperative day 3 patient's Cordis was discontinued and he was diuresed with 40 mg of IV Lasix twice daily. Patient was found to be hypertensive and
was resumed on his amlodipine and Coreg. On 08/23 postoperative day 4 patient's 2 view chest x-ray remained stable. He was still mildly hypertensive so Norvasc was increased again. patient remained hemodynamically stable for discharge home.
Home medication changes:
see below
Discharge Plan
-
Patient Disposition: Home (Routine Discharge)
Discharge Diagnosis/Procedures: CEA and CABG x2
Condition: Good
Diet: 2 Gram Sodium
Activity: No strenuous activity
Driving Restrictions: Not until seen by your Dr
Bathing Restrictions: OK to Shower
Blood Work: bmp in one week
Other Services: Cardiac Rehab
Specialty Instructions: Weigh Daily- Call MD for wt gain/loss 3 lbs overnight/5 lbs in 1 week
Activity Restrictions/Additional Instructions:
If you experience severe constant headache, weakness to an arm or leg, change in vision, trouble speaking or any stroke-like symptom, call 911 immediately
If you experience swelling, increased bruising, drainage from neck site, or fever, please call the office
ACTIVITY:
-No strenuous activity: no heavy lifting, pushing, pulling anything over 15 pounds for one month
-continue to use stairs as tolerated
DRIVING RESTRICTIONS:
-No driving for one month or until approved by your surgeon
WOUND CARE:
-Shower daily. Use soap & water.
-No lotions, creams or powders on incision area.
DIET:
-continue a low fat/low cholesterol diet.
-IF you are diabetic, continue carb controlled diet.
CARDIAC REHAB:
-Please make appointment to start in 5-6 weeks with your local hospital program. (See Cardiac Rehabilitation Discharge Booklet).
SPECIALTY INSTRUCTIONS:
-Weigh yourself daily. Call your physician for any weight gain/loss of 3 lbs overnight or 5 lbs in one week.
-REPORT any clicking noise or uneven appearance of your sternum to your surgeon immediately.
-If you smoke, you are instructed to quit. The [place] smoking hotline phone number is [phone]
Stand Alone Forms: DC Instr - Vascular OR
Referrals:
CT Transitional Care Nurse [Outside] - in one to two days
(
The Cardiothoracic Transitional Care Nurse will call you to set up a visit in 1-2 days.)
[facility] Cardiac Re[facility] [Outside]
(Cardiac Rehab Orientation appointment is on 09/19/2024@ 11:00am.
The Cardiac Rehab gym is located on the first floor of the [facility].)
Varsha Carranza PA-C [Specified Professional Personl] - 08/28/24 9:30 am (Vascular surgery office follow up)
Jigna Lai DO [Active] - in six weeks (PFT )
Demetris Ocampo PA-C [Primary Care Provider] - in four to six weeks (Please make an appointment in four to six weeks. )
Tigre Lind MD [Active] - 09/17/24 3:30 pm
Demetris Soriano MD [Active] - 10/08/24 11:10 am
Prescriptions:
New
atorvastatin 80 mg Tablet
80 mg PO DAILY Qty: 30 1RF
acetaminophen 325 mg Tablet
650 mg PO Q4HPRN PRN (Reason: mild pain,headache,temp >101F ) Qty: 0 0RF
clopidogrel 75 mg Tablet
75 mg PO DAILY Qty: 30 0RF
gabapentin 100 mg Capsule
100 mg PO TID Qty: 30 0RF
oxycodone 5 mg Tablet
2.5 mg PO Q4HPRN PRN (Reason: moderate pain) Qty: 10 0RF
furosemide [Lasix] 40 mg tablet
40 mg PO DAILY Qty: 7 0RF
Continued
carvedilol 12.5 mg Tablet
12.5 mg PO BID
aspirin 81 mg Tablet,Delayed Release (Dr/Ec)
81 mg PO DAILY
folic acid 1 mg Tablet
1 mg PO DAILY
thiamine mononitrate (vit B1) 100 mg Tablet
100 mg PO DAILY
potassium chloride 20 mEq Tablet Extended Release
20 meq PO DAILY
allopurinol 100 mg Tablet
100 mg PO DAILY
ferrous sulfate [iron] 325 mg (65 mg iron) Tablet
325 mg PO DAILY
Probiotic 10 billion cell Capsule
10,000 mmu cells PO DAILY
Changed
amlodipine 5 mg Tablet
10 mg PO DAILY Qty: 0 0RF
Discontinued
simvastatin 20 mg Tablet
20 mg PO DAILY
turmeric 400 mg Capsule
400 mg PO DAILY
Discharge Orders:
Discharge Patient (As Directed); Ordered 08/23/24
Ordered By: Angeline Fagan
Discharge Date and Time
Print Language: ESTONIAN
--- NOTE | 2024-08-23 07:45 | PTCARENOTE ---
Resumed care of patient. Walking rounds completed with previous RN. Pt assessed while he was sitting in the chair. Pt alert and oriented x4. Pt denies pain, nausea, and shortness of breath. ZHENG with equal strength throughout. Independent in the room
using the rollator. SR with 1st degree AVB and BBB on tele with rates in the 70s-80s. BP 139/84. Bilateral radial and DP pulses palpable. +1 lower extremity edema. POX 96% on RA. Lungs clear throughout. Occasional productive cough with coleman sputum.
IS encouraged-1500mL achieved. Abdomen soft, round, obese, nontender. +BS. +BM. Pt voiding adequate amounts of miguelito urine in the urinal. Sternal incision covered with antibacterial dressing, old drainage noted. 4 old chest tube sites approximated
with sutures, NAINA. Right groin puncture site approximated, ecchymotic. Right SVG harvest site approximated, NAINA. Right wrist 20g PIV and Right AC 18g PIV intact. See MAR for medication administration. See worklist for complete nursing assessment.
Plan of care reviewed and patient in agreement.
[2024-08-23] MEDS: LIPITOR 80 MG PO (07:54)
[2024-08-23] MEDS: FEOSOL 325 MG PO (07:54)
[2024-08-23] MEDS: VITAMIN B1 100 MG PO (07:54)
[2024-08-23] MEDS: NEURONTIN 100 MG PO (07:54)
[2024-08-23] MEDS: PROTONIX 40 MG PO (07:54)
[2024-08-23] MEDS: BACTROBAN 2% OINTMENT 1 APPLIC NASAL (07:54)
[2024-08-23] MEDS: COREG 12.5 MG PO (07:54)
[2024-08-23] MEDS: FOLVITE 1 MG PO (07:54)
[2024-08-23] MEDS: LASIX 40 MG IV (07:54)
[2024-08-23] MEDS: MAGNESIUM OXIDE 500 MG PO (07:55)
[2024-08-23] MEDS: LIDOCAINE 4% PATCH TOPICAL (07:55)
[2024-08-23] MEDS: LOW STRENGTH ASPIRIN 81 MG PO (07:55)
[2024-08-23] MEDS: NSS IV (07:55)
[2024-08-23] MEDS: ZYLOPRIM 100 MG PO (07:55)
[2024-08-23] MEDS: PLAVIX 75 MG PO (07:55)
[2024-08-23] MEDS: PACERONE 200 MG PO (07:55)
[2024-08-23] MEDS: VITAMIN C 500 MG PO (07:55)
[2024-08-23] MEDS: SENOKOT-S PO (07:55)
[2024-08-23] MEDS: NORVASC 10 MG PO (07:55)
--- NOTE | 2024-08-23 09:19 | CM ---
Reviewed chart. . Met with Mr. Marie to review discharge plans. He states he is feeling well and maybe able to go home soon. We reviewed a home visit by the Transitional Care Nurse. He is agreeable to a home visit. Prior to admission he resides
with a roommate in a one story home with three steps to enter. Prior to admission he ambulated with a rollator. He has been ambulating with a rolling walker and going 100 feet with supervision. He was independent with ADL's. He has a rollator
and wheelchair at home. Currently he does not use the wheelchair. He has a prescription plan and uses [facility]. His roommate does work outside the home but can be available to assist in his care if needed. Medically work-up in progress. The
discharge plan is to return home with roommate and a home visit by the Transitional Care Nurse when medically stable.
--- NOTE | 2024-08-23 11:34 | PTCARENOTE ---
VSS. Pt assisted to shower, tolerated. Assisted with putting clothing on. Pt tolerated. Discharge order received. Awaiting ride.
--- NOTE | 2024-08-23 12:45 | PTCARENOTE ---
All discharge instructions and medications reviewed. Significant other at bedside. States understanding. All belongings returned to patient. Escorted via wheelchair to car.
== END 2024-08-23 12:58 | disposition home or self-care (01) | DRG 38 ==
LOC: CVICU 06:09
PROVIDERS: Anesthesiology; Nurse Practitioner; Nurse Practitioner Acute Care; Nurse Practitioner Family; Physician Assistant Medical; ADMITTING PHYSICIAN Surgery Vascular Surgery; ATTENDING PHYSICIAN Thoracic Surgery (Cardiothoracic Vascular Surgery); CONSULT PHYSICIAN Internal Medicine Cardiovascular Disease; CONSULT PHYSICIAN Internal Medicine Critical Care Medicine; PRIMARYCARE PHYSICIAN Physician Assistant Medical
PROC: 03CH0ZZ Extirpation of Matter from Right Common Carotid Artery, Open Approach (ICD-10-PCS; 2024-08-15)
PROC: 03UH0KZ Supplement Right Common Carotid Artery with Nonautologous Tissue Substitute, Open Approach (ICD-10-PCS; 2024-08-15)
PROC: 06BP4ZZ Excision of Right Saphenous Vein, Percutaneous Endoscopic Approach (ICD-10-PCS; 2024-08-19)
PROC: 02L70CK Occlusion of Left Atrial Appendage with Extraluminal Device, Open Approach (ICD-10-PCS; 2024-08-19)
PROC: 02100ZC Bypass Coronary Artery, One Artery from Thoracic Artery, Open Approach (ICD-10-PCS; 2024-08-19)
PROC: B24BZZ4 Ultrasonography of Heart with Aorta, Transesophageal (ICD-10-PCS; 2024-08-19)
PROC: 5A1221Z Performance of Cardiac Output, Continuous (ICD-10-PCS; 2024-08-19)
PROC: 021009W Bypass Coronary Artery, One Artery from Aorta with Autologous Venous Tissue, Open Approach (ICD-10-PCS; 2024-08-19)
DX: I65.23 Occlusion and stenosis of bilateral carotid arteries (principal); D62 Acute posthemorrhagic anemia; I48.21 Permanent atrial fibrillation; I45.2 Bifascicular block; J98.11 Atelectasis; I25.10 Atherosclerotic heart disease of native coronary artery without angina pectoris; I10 Essential (primary) hypertension; E78.00 Pure hypercholesterolemia, unspecified; J44.89 Other specified chronic obstructive pulmonary disease; M10.9 Gout, unspecified; G47.33 Obstructive sleep apnea (adult) (pediatric); F10.90 Alcohol use, unspecified, uncomplicated; E66.812 Obesity, class 2; I44.0 Atrioventricular block, first degree; R00.1 Bradycardia, unspecified; E11.9 Type 2 diabetes mellitus without complications; E86.1 Hypovolemia; E87.70 Fluid overload, unspecified; E83.41 Hypermagnesemia; Z68.38 Body mass index [BMI] 38.0-38.9, adult; Z79.82 Long term (current) use of aspirin; Z79.899 Other long term (current) drug therapy; Z82.49 Family history of ischemic heart disease and other diseases of the circulatory system; Z86.16 Personal history of COVID-19; Z86.73 Personal history of transient ischemic attack (TIA), and cerebral infarction without residual deficits; Z86.711 Personal history of pulmonary embolism; Z87.891 Personal history of nicotine dependence
CPT/HCPCS: 88304; 88311; 35301; 36415; 71045; 71046; 80048; 80053; 81003; 81015; 82248; 82330; 82565; 82805; 82810; 82947; 82962; 83036; 83735; 83880; 84100; 84132; 84302; 84520; 85014; 85018; 85025; 85027; 85049; 85610; 85730; 86803; 86850; 86900; 86901; 86920; 87070; 93005; 93312; 93320; 93325; 93880; 94002; 94010; 94060; 95938; 95941; 95955; 97116; 97163; 97166; 97530; 97535

== ENCOUNTER → 2024-09-27 13:49 | Outpatient (REF) | payer MEDICARE, OTHER, SELFPAY | LOC: RAD 13:49 | PROVIDERS: ATTENDING PHYSICIAN Physician Assistant; FAMILY PHYSICIAN Physician Assistant Medical | DX: I65.23 Occlusion and stenosis of bilateral carotid arteries (principal) | CPT/HCPCS: 93880 ==

== ENCOUNTER → 2025-02-28 13:46 | Outpatient (REF) | payer MEDICARE, OTHER, SELFPAY | LOC: RAD 13:46 | PROVIDERS: ATTENDING PHYSICIAN Student in an Organized Health Care Education/Training Program; FAMILY PHYSICIAN Physician Assistant Medical | DX: I73.9 Peripheral vascular disease, unspecified (principal) | CPT/HCPCS: 93923; 93925 ==

== ENCOUNTER → 2025-03-31 12:31 | Outpatient (REF) | payer MEDICARE, OTHER, SELFPAY | LOC: RAD 12:31 | PROVIDERS: ATTENDING PHYSICIAN Surgery Vascular Surgery; FAMILY PHYSICIAN Physician Assistant Medical | DX: I65.23 Occlusion and stenosis of bilateral carotid arteries (principal) | CPT/HCPCS: 93880 ==